=== PATIENT | male | born 1940 | race Caucasian/White ===

== ENCOUNTER 2016-09-29 18:02 | Inpatient (IN) | payer MEDICAID, MEDICARE ==
[~2016-09-29] VITALS: Ht 172.7 cm; Wt 154.5 kg
[2016-09-29] MEDS: 0.9% Sodium Chloride 1,000 ML IV SCH ×3 (00:22→21:32)
[~2016-09-29 18:02] MED LIST: ACET-171 PO; FINA5TAB9 PO; FURO40TA4 PO; LISI-571 PO; NYST1POW25 TOPICAL; OMEP20CA11 PO; POTA-62 PO; PRAV40TA PO; RISP1TAB90 PO; TAMS0.4C29 PO; Thiamine PO; WARF5TAB7 PO
[2016-09-29 18:06] VITALS: BP 130/53; PULSE 74; RESP 13; O2SAT 90
--- NOTE | 2016-09-29 18:08 | ED.REPORT ---
HPI-General Illness Date of Service Sep 29, 2016 ED Provider: Laura RocheO. A 76 year old male with a history of CHF and atrial fibrillation on Warfarin presents to the ED via EMS after being found down in his trailer just prior to arrival. He was found by EMS conscious on the ground between a bed and a dresser. He does not know how long he was down but his last known normal was five days ago when he was visited by his brother. En route he was awake and able to answer questions, with shallow breathing and a pulse ox in the 80's. He has wounds on his chest, left arm, and right leg. During the interview he was speaking normally, but shaking and answering questions incorrectly. Nursing Notes Stated Complaint: FOUND DOWN Chief Complaint: General Complaint Nursing Notes Reviewed: Yes Allergies: Coded Allergies: No Known Allergies (Verified Allergy, Unknown, 11/23/15) Scheduled ([Thiamine]) 100 MG TABLET 100 MG PO DAILY Finasteride (Finasteride) 5 Mg Tablet 5 MG PO DAILY Furosemide (Furosemide) 40 Mg Tablet 40 MG PO DAILY Lisinopril (Lisinopril) 5 Mg Tablet 5 MG PO DAILY Nystatin (Nystatin) 1 Applic/Gm Powder 1 APPLIC TOPICAL BID Omeprazole (Omeprazole) 20 Mg Capsule.dr 20 MG PO DAILY Potassium Chloride ER (Potassium Chloride ER) 20 Meq Tablet.er 40 MEQ PO QAM TAKE WITH FOOD Pravastatin (Pravastatin) 40 Mg Tablet 40 MG PO HS Risperidone (Risperdal) 1 Mg Tablet 1 MG PO BID Tamsulosin ER (Tamsulosin ER) 0.4 Mg Cap.er.24h 0.4 MG PO HS Warfarin Sodium (Warfarin Sodium) 5 Mg Tablet 5 MG PO Roca,,,,Sa Warfarin Sodium (Warfarin Sodium) 5 Mg Tablet 7.5 MG PO Wed and Fri Scheduled PRN Acetaminophen (Acetaminophen) 500 Mg Tablet 1,000 MG PO Q6H PRN PRN For Pain General Time Seen by MD: 18:08 Chief Complaint Other (Found Down) Hx Obtained From: EMS Unable to Obtain Hx: Patient condition, Mental status Arrived By: Ambulance Sudden in Onset?: Yes Onset Occurred: Onset unknown Symptom Duration: Duration unknown Associated with: Denies: Fever Pertinent Negative: Relieved by nothing Recent Healthcare: No recent doctor visit Similar Sx Previous: No Past Medical History Patient History: Patient reports no known family medical history. Past Medical History Multiple pneumonias Reports: Congestive heart failure Reports: Atrial fibrillation, Morbid Obesity Past Surgical History Reports: Cholecystectomy Smoking History Never Smoker Social History Resides at [facility] Alcohol Use: Denies alcohol use Drug Use: Denies drug use Other Social History: Lives in [facility] Review of Systems Unable to Obtain ROS Patient condition, Mental status Physical Exam Vital Signs Vital Signs Date Time Temp Pulse Resp B/P Pulse Ox O2 Delivery O2 Flow Rate FiO2 09/29/16 20:30 77 20 117/51 Non-Rebreather 15 09/29/16 18:06 36.4 74 13 130/53 90 Non-Rebreather 15 Initial VS: Reviewed Abdomen / GI: Soft, Non-tender Psychiatric: Mood/affect normal, Behavior normal General/Constitutional: Awake, Alert Distress / Hydration: Positive: Dehydration moderate Speaking normally but answering questions incorrectly Head / Eyes: Normocephalic Conjunctiva / Sclera: Positive: Discharge R... (Purulent) Trauma - General: Positive: Ecchymosis (Around right eye) Right conjunctiva hyperemia Left eye normal ENT: Airway patent Mouth: Positive: Mucous membranes dry Tongue dry and lips cracked Respiratory / Chest: Breath sounds = bilat, No respiratory distress Diminished Breath Sounds: Positive: Decreased bilateral Cardiovascular: Regular rhythm, Heart sounds NL Heart Rate / Rhythm: Positive: Tachycardia Lower Extremity / Pelvis / MS: Vascular intact Trauma / Burn / Environmental: Positive: Ecchymosis (Anterior right leg) Right calf 20% bigger than left calf Skin: Warm, Dry Areas of excoriation and erythema on anterior abdominal wall, left arm, and right leg consistent with forte or pressure ulcers Areas on right leg brightly erythemic and consistent with infection Neurologic: Speech NL Mental Status: Positive: Disoriented to person, Disoriented to place, Disoriented to time Focal Weakness: Positive: Lower extremity bilat, Upper extremity bilat Movement Abnormality: Positive: Tremor Interpretation & Diagnostics Right Venous Duplex: IMPRESSION: Limited examination secondary to patient shaking. No evidence of deep venous thrombosis identified. Dictated by: Oma Arevalo M.D. on 09/29/2016 at 21:52 Lab Results Interpretation Result Diagram: 09/29/16 1900 09/29/16 1900 Test 09/29/16 19:00 White Blood Count 29.0th/mm3 (3.8-10.1) Red Blood Count 6.03mil/mm3 (4.40-5.80) Hemoglobin 14.3g/dL (13.8-17.2) Hematocrit 46.9% (41.0-50.0) Mean Corpuscular Volume 77.8fL (81-100) Mean Corpuscular Hemoglobin 23.7pg (27.0-35.0) Mean Corpuscular Hemoglobin Concent 30.5% (32.0-37.0) Red Cell Distribution Width 19.8% (12.3-15.4) Platelet Count 305bil/L (150-400) Neutrophils (%) (Auto) 88.3% (40-74) Lymphocytes (%) (Auto) 3.0% (14-46) Monocytes (%) (Auto) 8.2% (4-12) Eosinophils (%) (Auto) 0% (0-5) Basophils (%) (Auto) 0.1% (0-3) Prothrombin Time 13.8sec (8.1-12.5) Prothromb Time International Ratio 1.28ratio Sodium Level 148mEq/L (134-144) Potassium Level 4.7mEq/L (3.5-5.2) Chloride Level 110mEq/L (97-108) Carbon Dioxide Level 20mmol/L (18-29) Blood Urea Nitrogen 48mg/dL (8-27) Creatinine 2.57mg/dL (0.76-1.27) Estimat Glomerular Filtration Rate 26mL/min (>59) Glucose Level 111mg/dL (60-99) Lactic Acid Level 3.7mmol/L (0.4-2.0) Calcium Level 9.7mg/dL (8.5-10.1) Total Bilirubin 2.1mg/dL (0.0-1.2) Aspartate Amino Transf (AST/SGOT) 471U/L (0-50) Alanine Aminotransferase (ALT/SGPT) 97U/L (0-44) Alkaline Phosphatase 109U/L (25-160) Total Creatine Kinase > 93687F/L (21-232) Troponin T 0.029ug/L (0.0-0.011) Total Protein 7.6g/dL (6.4-8.4) Albumin 3.4g/dL (3.4-5.0) ECG Interpretation ECG Interpretation: Atrial fibrillation rate 78 Nonspecific T abnormalities, lateral leads Prolonged QT interval Time: 19:24 Interpreted by: ED physician X-Ray Chest Interpretation Chest Xray Interpretation: IMPRESSION: No acute cardiopulmonary processes identified. Dictated by: Oma Arevalo M.D. on 09/29/2016 at 21:19 View: Portable, 1 view Interpretation / Wet Read by: Interpret - Radiologist CT Head Interpretation IMPRESSION: No acute intracranial process is identified. Dictated by: Oma Arevalo M.D. on 09/29/2016 at 18:57 Study: Head CT no contrast Interpretation / Wet Read by: Interpret - Radiologist Re-Eval/Medical Decision Med Decision/Clinical Course 76-year-old male has spent an unknown amount of time down on the ground. He presents by EMS. He is not exactly sure how long she has been down. He is found to be septic with rhabdomyolysis and acute renal insufficiency. I expect the sepsis coming from his skin. He has multiple areas of skin excoriation as well as bright red erythema on his left knee and his right leg is also swollen and tender. He was treated with IV fluid resuscitation and broad-spectrum antibiotics. He will be admitted to the intensive care unit. His urine also shows indicators of infection. The Zosyn should cover this as well. We are velasco culturing him. Source of Hx: Old records Time of Eval: 20:19 Patient Status: Condition improved Re-Evaluation/Progress Note: Patient rechecked. Additional physical exam performed. Informed patient of lab and CT results, with plan for admit. Patient agrees with plan for care. Consultation : Referral / Consult Name: Rolando Alba MD Consulted With: Hospitalist Call Returned at: 20:36 Hospital Superintendent: Agrees with eval, Agrees with plan, Accepts admit Counseled Regarding: Diagnosis, Lab results, Need for admission Discharge & Departure Primary Impression: Sepsis Sepsis type: sepsis due to unspecified organism Qualified Code: A41.9 - Sepsis, unspecified organism Additional Impressions: Lactic acidosis Cellulitis Site of cellulitis: extremity Site of cellulitis of extremity: lower extremity Laterality: left Qualified Code: L03.116 - Cellulitis of left lower limb Renal injury Encounter type: initial encounter Laterality: unspecified laterality Qualified Code: S37.009A - Unspecified injury of unspecified kidney, initial encounter Skin sore Elevated troponin Rhabdomyolysis Rhabdomyolysis type: non-traumatic Qualified Code: M62.82 - Rhabdomyolysis UTI (urinary tract infection) Urinary tract infection type: acute cystitis Hematuria presence: without hematuria Qualified Code: N30.00 - Acute cystitis without hematuria Disposition: ADMITTED TO HOSPITAL Discharge Condition All VS Reviewed: Yes Condition: Stable Referrals: Geoff Archuleta MD (PCP) Scribe Attestation Portions of this note were transcribed by Samantha Joe. I, Dr. Swartz, personally performed the history, physical exam, and medical decision-making; I reviewed and confirmed the accuracy of the information in the transcribed note. Signed by: Jarrett Raya, 09/30/2016, 00:04 copies to: Geoff Archuleta MD, Todd P DO Sep 29, 2016 18:08 SAMANTHA JOE Sep 29, 2016 18:52
[2016-09-29] MEDS ORDERED: Piperacillin-Tazo 3.375 Gm Inj 3.375 GM in Dextrose 5% Minibag Plus 50 ML IV ONE (18:40)
--- NOTE | 2016-09-29 18:58 | DRSVH ---
PROCEDURE: CT BRAIN WITHOUT CONTRAST ([id number]) INDICATIONS: found down, warfarin use, Елена Shevlin TECHNIQUE: Noncontrast 4.5 mm thick angled axial sections acquired from the foramen magnum to the vertex, with c oronal reformats. COMPARISON: [facility], CT, CT BRAIN WO CON, 11/23/2015, 17:45. FINDINGS: Image quality: Excellent. CSF spaces: Basal cisterns are patent. No extra-axial fluid collections. The ventricles are symmet radha in size and shape. Brain: No intracranial bleeds or masses. There is cerebral volume loss for age, with resultant vent ricular and sulcal prominence. There are periventricular and deep white matter chronic small vessel ischemic changes. There is intracranial internal carotid artery atherosclerosis. Skull and face: Calvarium and visualized facial bones appear intact, without suspicious lesions. Sinuses: Visualized sinuses and mastoids are clear. IMPRESSION: No acute intracranial process is identified. Dictated by: Oma Arevalo M.D. on 09/29/2016 at 18:57 Approved by: Oma Arevalo M.D. on 09/29/2016 at 18:57
[2016-09-29 19:37] LABS: INR 1.28 ratio
[2016-09-29 19:40] LABS: BASOPHILS % (AUTO) 0.1 % (0-3); EOSINOPHILS % (AUTO) 0 % (0-5); Mean Corpuscular Volume 77.8 fL (81-100)
[2016-09-29 19:47] LABS: MONOCYTES % (AUTO) 8.2 % (4-12); Mean Corpuscular Hemoglobin 23.7 pg (27.0-35.0); NEUTROPHILS % (AUTO) 88.3 % (40-74); Platelet Count 305 bil/L (150-400)
[2016-09-29 20:03] LABS: TROPONIN T 0.029 ug/L (0.0-0.011)
[2016-09-29 20:15] LABS: Creatine Kinase > 17000 U/L (21-232)
[2016-09-29 20:30] VITALS: BP 117/51; PULSE 77; RESP 20
[2016-09-29] MEDS ORDERED: Polyethylene Glycol (PEG) 17 Gm Powder PO PRN (20:55)
[2016-09-29] MEDS ORDERED: Alum-Mag Hydrox-Simeth 30 mL Suspension PO PRN (20:55)
[2016-09-29] MEDS ORDERED: Ondansetron 2 mg/mL 2 mL Inj IVPUSH PRN (20:55)
--- NOTE | 2016-09-29 21:20 | DRSVH ---
PROCEDURE: X-RAY CHEST ONE VIEW, PORTABLE ([id number]) INDICATIONS: sepsis TECHNIQUE: One view of the chest was acquired. COMPARISON: [facility], CR, XR CHEST 1VW (PORTABLE), 11/23/2015, 16:08. FINDINGS: Surgical changes and devices: Right humeral head replacement. Lungs and pleura: No pleural effusions or pneumothorax. Lungs are clear. Mediastinum: Mediastinal contours appear unchanged. Heart size is unchanged. Bones and chest wall: No suspicious bony lesions. Overlying soft tissues appear unremarkable. IMPRESSION: No acute cardiopulmonary processes identified. Dictated by: Oma Arevalo M.D. on 09/29/2016 at 21:19 Approved by: Oma Arevalo M.D. on 09/29/2016 at 21:19
--- NOTE | 2016-09-29 21:54 | DRSVH ---
PROCEDURE: US VEINOUS LEG DUPLEX UNILATERAL, RIGHT INDICATIONS: right leg edema, septic shock TECHNIQUE: Real-time imaging, as well as color and pulse Doppler interrogation, were performed of the lower extr emity deep veins from the inguinal ligament to the popliteal fossa. COMPARISON: None. FINDINGS: The deep veins are normally compressible, and free of intraluminal thrombus. Color and pu lse Doppler demonstrate normal phasic intraluminal flow. There is dampened augmentation response to distal compression maneuver. Of note patient was shaking throughout the examination. IMPRESSION: Limited examination secondary to patient shaking. No evidence of deep venous thrombosis identified. Dictated by: Oma Arevalo M.D. on 09/29/2016 at 21:52 Approved by: Oma Arevalo M.D. on 09/29/2016 at 21:52
[2016-09-29] MEDS: Sodium Bicarb 8.4% 150 mEq/1,000 mL D5W IV SCH ×2 (22:30)
[2016-09-29 22:36] LABS: APPEARANCE,URINE CLOUDY (CLEAR,HAZY); COLOR,URINE DARK YELLOW (YELLOW); OCCULT BLOOD,URINE LARGE (NEGATIVE)
[2016-09-29 22:37] LABS: ICTOTEST,URINE POSITIVE (Negative)
[2016-09-29 22:53] VITALS: BP 146/89; PULSE 76; RESP 20; O2SAT 100
[2016-09-30] VITALS: BP 160/90; PULSE 73; RESP 17; O2SAT 97
[2016-09-30] MEDS: 0.9% Sodium Chloride 1,000 ML IV SCH ×8 (00:19→23:21)
--- NOTE | 2016-09-30 02:20 | NUR ---
Admit Patient transferred from ED to room 2009, no distress noted. Full sponge bath given and all Calmoseptine applied to red areas, admission screening done, all questions answered, a lady called and requested info about the patient, patient requested for me not to talk with her or give her any information, urinary catheter draining dark brown urine VS as noted, will continue to monitor.
[2016-09-30 03:19] LABS: Mean Corpuscular Hemoglobin 23.9 pg (27.0-35.0); Mean Corpuscular Volume 77.6 fL (81-100)
[2016-09-30 03:20] LABS: BASOPHILS % (AUTO) 0 % (0-3); EOSINOPHILS % (AUTO) 0 % (0-5); MONOCYTES % (AUTO) 14 % (4-12); NEUTROPHILS % (AUTO) 81 % (40-74); Platelet Count 291 bil/L (150-400)
[2016-09-30 03:46] VITALS: BP 173/85; PULSE 89; RESP 26; O2SAT 99
[2016-09-30] MEDS: Sodium Bicarb 8.4% 150 mEq/1,000 mL D5W IV SCH ×4 (03:46→08:37)
[2016-09-30] MEDS ORDERED: 0.9% Sodium Chloride 1,000 ML IV ONE (03:55)
--- NOTE | 2016-09-30 04:21 | PCM.HPMED ---
Subjective Date of Service Sep 29, 2016 Primary Provider: Admitting Physician: Rolando Alba MD Primary Care Physician: Geoff Archuleta MD Attending Physician: Rolando Alba MD Chief Complaint: Ground level fall History of Present Illness: Pt is a 76 year old male with a history of CHF and atrial fibrillation on Warfarin presents to the ED via EMS after being found down in his trailer just prior to arrival. He was found by EMS conscious on the ground between a bed and a dresser. He does not know how long he was down. En route he was awake and able to answer questions, with shallow breathing and a pulse ox in the 80's. He has wounds on his chest, left arm, and right leg. During the interview he was speaking normally, but shaking and answering questions incorrectly. He reports chills, diarrhea, SOB, palpitations. Denies CP, abdominal pain, new focal weakness/numbness. Review of Systems: Comprehensive review of systems conducted and was negative except for the pertinent positives listed above. Allergies Coded Allergies: No Known Allergies (Verified Allergy, Unknown, 11/23/15) Home Medications Acetaminophen 1000 mg q6h PRN Finasteride 5 mg daily Furosemide 40 mg daily Lisinopril 5 mg daily Nystatin Omeprazole 20 mg daily KCl 40 meq daily Pravastatin 40 mg hs Risperidone 1 mg BID Tamsulosin 0.4 mg qhs Warfarin PMH Congestive heart failure Atrial fibrillation Morbid Obesity Surgical History Cholecystectomy Family History Patient reports no known family medical history. Social History Hx Alcohol Use: Yes (Occasionally) Hx Substance Use: No Hx Tobacco Use: No Smoking Status: Never Smoker Exam Vital Signs Vital Sign - Last Date Time Temp Pulse Resp B/P Pulse Ox O2 Delivery O2 Flow Rate FiO2 09/29/16 18:06 36.4 74 13 130/53 90 Non-Rebreather 15 Exam General: Alert, Confused, Cooperative, No Acute Distress. Tremulous. Head: Normocephalic. External ears normal.Ecchymosis over right eye Eyes: PERRLA, EOMI. Anicteric sclerae. Right eye corneal laceration. Mouth: Mouth Normal, Mucous Membranes Moist/Fults Neck: Neck supple with full range of motion. Chest & Lungs: Clear to auscultation bilaterally with no crackles, wheezes, or rhonchi. Cardiovascular: Tachycardic, Normal S1, Normal S2, No Murmurs/Rubs/Gallops Abdomen: Non-tender, Non-distended, No masses, Normoactive bowel tones, Soft Musculoskeletal: Normal Range of Motion Skin: Areas of excoriation and erythema on anterior abdominal wall, left arm, and right leg consistent with forte or pressure ulcers. Extremities: Ecchymosis (Anterior right leg). Right calf 20% bigger than left calf. Areas on right leg brightly erythemic Neurological: Grossly Neurologically Intact, Normal Speech Lab and Diagnostics Result Diagram: 09/29/16189909/29/161899 Assessment & Plan Pt is a 76 year old male with a history of CHF and atrial fibrillation on Warfarin presents after being found down for unknown amount of time in his trailer. Sepsis, acute. Present on admission. - RR 26, WBC 41.3. Lactic acid 2.7. CXR showed no acute cardiopulmonary disease. CT head was normal. - NS @ 250 ml/hr - Urine and blood cultures - Zosyn 3.375 q6h Rhabdomyolysis, acute. Present on admission. - CK >17,000. Down for unknown time. - NS @ 250 ml/hr - Sodium bicarb @ 150 ml/hr - Monitor CK and Cr Acute kidney injury. Present on admission. - Secondary to rhabdo. Cr 2.57. - NS @ 250 ml/hr - Monitor BMP - Avoid nephrotoxic agents - Consult Nephrology in the AM Lower extremity cellulitis, acute. Present on admission. - Initially concern for DVT given swelling. US legs was limited secondary to patient shaking. No evidence of deep venous thrombosis identified. - Wound care consult - Zosyn 3.375 q6h Urinary tract infection, acute. Present on admission. - UA showed 6-10 WBC, positive nitrite, trace leuk esterase, moderate bacteria. - Urine cultures - Zosyn 3.375 q6h Atrial fibrillation, chronic - EKG showed afib with rate 78, nonspecific T abnormalities. - Continue Warfarin - Monitor on telemetry Chronic congestive heart failure. - Hold home Lasix, Lisinopril - Bowel regimen as needed - Antiemetic as needed Patient is admitted under inpatient status with expected length of stay greater than 2 midnights due to severity of presenting symptoms, risk of adverse event, and complexity of treatment plan. Resuscitation Status: DNR/DNI:Do Not Resuscitate/Intubate Attending Statement The patient was seen and examined together with Dr. Kenyon on 09/30/16 and I agree with the history, exam and plan as outlined in the note above. Connor Munoz Sep 29, 2016 21:43 Rolando Alba MD Sep 30, 2016 08:14
[2016-09-30] MEDS ORDERED: POTASSIUM CHLORIDE 40 MEQ PO SCH (04:25)
[2016-09-30 06:26] LABS: INR 1.3 ratio
[2016-09-30 08:00] VITALS: BP 155/80; PULSE 83; RESP 21; O2SAT 99
[2016-09-30] MEDS: Piperacillin-Tazo 3.375 Gm Inj 3.375 GM in Dextrose 5% Minibag Plus 50 ML IV SCH ×2 (08:09→20:09)
[2016-09-30] MEDS: risperiDONE 1 mg Tablet PO SCH ×2 (08:09→20:09)
[2016-09-30 12:00] VITALS: BP 146/78; PULSE 84; RESP 26; O2SAT 98
--- NOTE | 2016-09-30 13:03 | NUR ---
Spoke with ex-girlfriend regarding her request for therapy dog visitation. Per her report there are two dogs who are both Pit Bulls. It was explained that under the ADA we are allowed to ask only if the animal is trained to accommodate a disability and what task or service the animal is trained to do. She is not able to clearly identify whether the dogs are comfort or therapy animals, neither is she able to tell me what they do for her. She actually does not want to bring the animal in for herself but for companionship for the patient she is visiting. Conversation was abruptly ended by the girlfriend.
--- NOTE | 2016-09-30 13:12 | NUR ---
NUTRITION ASSESSMENT: ASSESS:76 YO male admitted to CCU with sepsis, UTI, NURYS, rhabdo, after being found down. He has wounds on his chest, left arm, and right leg. Renal and wound consults ordered and are pending. Speech Therapy advanced diet to dysphagia mechanical, nectar thick liquids. PO intake not yet recorded. Code status: DNR / DNI. PMHx:CHF, A-fib requiring Coumadin, DMII, SUNNY with noncompliance. DIET:Dysphagia mechanical, heart healthy consistent carb. PO intake not yet recorded. LABS: Reviewed. Na 148, Chloride 111, BUN 54, Cr 2.42, Glu 163, Lactic Acid 2.7, Ca 7.8, AST 397, ALT 108, Alb 2.4. MEDICATIONS: Reviewed. Coumadin. NUTRITION FOCUSED PHYSICAL ASSESSMENT: GI symptoms / stool: No stool reported.Gustavo: 14. Skin Integrity: Wound evaluation pending. ANTHROPOMETRICS: Current Wt: 141.2 kgBMI: 47.0 kg/m2. IBW: 70 kg (202% IBW) ESTIMATED NEEDS (CLASS III OBESITY, WOUNDS): Calories: 1750 - 2450 kcal (25 - 35 kcal / kg IBW) Protein: 140 - 175 g protein (2.0 - 2.5 g / kg IBW) NUTRITION DIAGNOSIS: 1)Altered nutrition-related labs related to rhabdo with NURYS, as evidenced by electrolyte abnormalities, elevated BUN, Cr, Lactic Acid, AST, ALT. 2)Chewing / swallowing difficulties related to decreased laryngeal excursion, as evidenced by requirement for modified diet texture, per ST order. INTERVENTION: 1) In the event PO intake not consistently > 50% trays, will add supplements to trays to address wound healing. MONITOR/EVALUATE: Diet advance / tolerance, PO intake, labs, GI/nutrition status. Follow up per moderate nutrition risk guidelines.
--- NOTE | 2016-09-30 13:20 | NUR ---
Evaluation completed. Please go to "Notes" then click on "Assessments and Notes" (bottom left corner of screen). Then select appropriate discipline tab on top of screen.
[2016-09-30 14:23] LABS: BASOPHILS % (AUTO) 0 % (0-3); EOSINOPHILS % (AUTO) 0 % (0-5); MONOCYTES % (AUTO) 10.1 % (4-12); Mean Corpuscular Hemoglobin 23.5 pg (27.0-35.0); Mean Corpuscular Volume 78.4 fL (81-100); NEUTROPHILS % (AUTO) 83.3 % (40-74); Platelet Count 226 bil/L (150-400)
[2016-09-30 14:48] LABS: Phosphorus 3.7 mg/dL (2.5-4.9)
[2016-09-30 16:00] VITALS: BP 153/70; PULSE 80; RESP 25; O2SAT 99
--- NOTE | 2016-09-30 16:41 | NUR ---
Social Work: Initial Assessment D: Per EMR review, pt is a 76 year old male admitted for sepsis, afib, cellulitis. pt is Medicare with no supplement; pt denies LTC insurance or VA benefits. PCP is Geoff Archuleta MD. NOK is Jet Mercado, Son, . Readmit score not entered at this time. POLST and AD on chart. OYSTER FLOATER met with pt's son at bedside. Sw role explained. See initial assessment. Pt resting comfortably at this time. Per son, Pt lives in a trailer in [place]. He is I at baseline and does not use any DME to his knowledge. Pt has 3 small steps to enter his trailer. Pt continues to drive and has a history with Елена Dominique for rehab. Son believes pt may have had home health for wound care but is not certain. A: Pt who was previously I at baseline P: Evolving; Pt currently in CCU, needs not yet identified. OYSTER FLOATER to continue to follow and assist with safe dcp. LUIS DANIEL Cote Addendum: 09/30/16 at 1645 by EVERTON RUST Amended: Links added.
--- NOTE | 2016-09-30 17:13 | NUR ---
[facility] Wound evaluation orders received, pt seen at bedside. Large man in a bariatric bed, disheveled in appearance and confused. Multiple areas of skin loss/damage at abdomen and legs, pt mumbles something about an electric heater. The wounds on the patients right lower leg have the look of a thermal burn and deep at that, left knee may be a contusion or pressure phenomena, abdominal wounds also look like abrasions or partial thickness forte. Right lower leg wounds/forte?- 8cm x 8cm and 3cm x 4 cm, dressed with adhesive foam and tape. Left knee- 6cm x5 cm, dressed with foam and tape. Abdomen left side wound 11cm x 8cm, dressed with mepilex sacrum. Right abdomen-3cm x 1cm, 2cm x 1cm dressed with adhesive foam squares. Will recheck on these wounds 10/01, right may need surgical debridement if proven to be full thickness forte.
--- NOTE | 2016-09-30 17:19 | NUR ---
Mentation/LOC/urine output Pt continues to be a RASS score -1 throughout shift. Able to answer questions about who and where he is and aprox date. Ex girlfriend at bedside for some of shift. She was attempting to help him eat his breakfast and he kept coughing when drinking or eating anything. Requested her to stop feeding patient and discussed importance of making sure pt does not aspirate any food or liquid and the possible complications of aspiration if pt did. She stated "but hes really thirsty, and he is fine to drink". Repeated info to her and the pt stated "I am going to do what the nurse is wanting me to do. I won't eat or drink right now." Pt's ex girlfriend then put the drink down and said "fine" and sat down. 10 minutes later, when I walked in, she was giving pt water through a straw again and pt was coughing. Reminded both pt and her about aspiration risk and removed tray/water. Notified MD who ordered speech eval. Pt's urine output was 400ml throughout shift, dark tyler with some sediment present. Pt denies any pain. q2h turns as well as continuous rotation and frequent rounding continues. Pt's son also at bedside for a few hours. Pt stated it was ok to share info with his son, was not saying yes or no about whether it was ok to share info with his ex girlfriend.
[2016-09-30 20:04] VITALS: BP 135/72; PULSE 84; RESP 20; O2SAT 99
[2016-10-01] VITALS (8 sets, daily range): BP systolic 130–175; BP diastolic 44–91; PULSE 70–91; RESP 16–24; O2SAT 97–100
[2016-10-01 03:04] LABS: BASOPHILS % (AUTO) 0.1 % (0-3); EOSINOPHILS % (AUTO) 0 % (0-5); MONOCYTES % (AUTO) 12.1 % (4-12); Mean Corpuscular Hemoglobin 24.1 pg (27.0-35.0); Mean Corpuscular Volume 78.6 fL (81-100); NEUTROPHILS % (AUTO) 80.6 % (40-74); Platelet Count 258 bil/L (150-400)
[2016-10-01 03:17] LABS: INR 1.25 ratio
--- NOTE | 2016-10-01 05:04 | NUR ---
Mentation/Sleep Pt slighty confused when awake. Yells at lab when they attempt to draw blood. Reports that he just wants to be left alone and sleep. Care clustered for limited interruption. Pt tolerating sleep well and is hemodynamically stable throughout night. Was able to switch from 2l NC to RA. Will continue to monitor pt. Care ongoing
[2016-10-01 05:40] LABS: Magnesium 2.1 mg/dL (1.6-2.6); Phosphorus 3.7 mg/dL (2.5-4.9)
[2016-10-01] MEDS: 0.9% Sodium Chloride 1,000 ML IV SCH (06:03)
[2016-10-01] MEDS: Piperacillin-Tazo 3.375 Gm Inj 3.375 GM in Dextrose 5% Minibag Plus 50 ML IV SCH ×2 (07:46→22:23)
[2016-10-01] MEDS: risperiDONE 1 mg Tablet PO SCH ×2 (07:47→22:23)
--- NOTE | 2016-10-01 08:42 | DRSVH ---
PROCEDURE: X-RAY CHEST ONE VIEW, PORTABLE ([id number]) INDICATIONS: sepsis TECHNIQUE: One view of the chest was acquired. COMPARISON: 09/29/2016, 11/23/2015 FINDINGS: Surgical changes and devices: None. Lungs and pleura: No pleural effusions or pneumothorax. Suboptimal inspiration. Patchy radiodensitie s are present over the right hilum. These could represent distended pulmonary vessels but infiltrate cannot be excluded. Mild atelectasis or scarring at both bases. Mediastinum: Mediastinal contours appear normal. Heart size is enlarged. Bones and chest wall: No suspicious bony lesions. Overlying soft tissues appear unremarkable. IMPRESSION: Possible right perihilar pneumonia. 2 view chest with improved inspiration would be helpf ul. Dictated by: Fredi Castano M.D. on 10/01/2016 at 8:41 Approved by: Fredi Castano M.D. on 10/01/2016 at 8:41
--- NOTE | 2016-10-01 08:51 | DRSVH ---
CORRECTED EXAM DATE AND TIME ON 10/05/16 PROCEDURE: US ABDOMEN INDICATIONS: NURYS UTI in male transaminitis TECHNIQUE: Real-time scanning was performed of the abdominal and retroperitoneal organs, with image documentatio n. Exam is limited by body habitus and bowel gas. COMPARISON: CT abdomen and pelvis 10/11/2015 FINDINGS: Liver length: 21.14 cm Gallbladder Wall Thickness: N./A. CHD: Not seen CBD: 7.20 mm Spleen length: 11.52 cm Right kidney length: 14.84 cm Left kidney length: 11.63 cm Aorta(Proximal): Obscured Aorta(Mid): 2.24 cm Aorta(Distal): 1.6 RCIA: Obscured LCIA: Obscured Liver: Liver is enlarged in size and hyperechoic in echotexture. Contour appears mildly lobulated. Gallbladder: Gallbladder surgically absent Biliary ducts: Intrahepatic bile ducts are non-dilated. Extrahepatic bile duct caliber is normal. Normal is 6-7 mm or less in diameter, or 10 mm or less post-cholecystectomy. Pancreas: Pancreas is obscured by bowel gas Spleen: Spleen is borderline in size and homogeneous in echotexture. Kidneys: Kidneys are normal in size and echotexture. No hydronephrosis or nephrolithiasis. Cortical thickness is 20 mm right and 16 mm left. Right renal simple cyst measuring 5.1 x 5.5 x 5.9 cm. No so lid masses. Aorta: Visualized aorta is normal in caliber at less than 3 cm. Iliacs: Proximal common iliac arteries are normal in caliber at less than 2.5 cm. IVC: Intrahepatic inferior vena cava is patent. Miscellaneous: No free abdominal fluid. IMPRESSION: 1. Hepatomegaly and steatosis, possible cirrhosis. Borderline splenomegaly. Correlate with liver func tion tests. 2. Status post cholecystectomy. 3. Portions of anatomy are obscured by bowel gas. Dictated by: Fredi Castano M.D. on 10/01/2016 at 8:49 Approved by: Fredi Castano M.D. on 10/01/2016 at 8:49
--- NOTE | 2016-10-01 15:59 | PCM.PNMED ---
Subjective Date of Service Oct 01, 2016 Subjective Afebrile, no new complaints, urine culture growing Escherichia coli pansensitive , WBC trending down, became improving, sodium 147, IV fluids changed to 1/2 NS . He states he remembers feeling dizzy before he fell Exam Vital Signs Vital Sign - Last Date Time Temp Pulse Resp B/P Pulse Ox O2 Delivery O2 Flow Rate FiO2 10/01/16 15:32 36.8 91 16 159/77 97 Room Air 09/30/16 12:00 2.00 Intake and Output 09/30/16 09/30/16 10/01/16 Cumulative From/Thru 15:00 23:00 07:00 09/29/16 18:06 - 10/01/16 06:01 Intake Total 4077 ml 3111 ml 79583 ml Output Total 400 ml 700 ml 1450 ml Balance 3677 ml 2411 ml 9445 ml Intake Oral 120 ml 120 ml IV Total 3957 ml 3111 ml 48748 ml Output Urine Total 400 ml 700 ml 1450 ml # Bowel Movements 0 0 Exam General: Alert, Confused, Cooperative, No Acute Distress. Tremulous. Head: Normocephalic. External ears normal.Ecchymosis over right eye Eyes: PERRLA, EOMI. Anicteric sclerae. Right eye corneal laceration. Mouth: Mouth Normal, Mucous Membranes Moist/Albert Neck: Neck supple with full range of motion. Chest & Lungs: Clear to auscultation bilaterally with no crackles, wheezes, or rhonchi. Cardiovascular: Tachycardic, Normal S1, Normal S2, No Murmurs/Rubs/Gallops Abdomen: Non-tender, Non-distended, No masses, Normoactive bowel tones, Soft Musculoskeletal: Normal Range of Motion Skin: Areas of excoriation and erythema on anterior abdominal wall, left arm, and right leg consistent with forte or pressure ulcers. Extremities: Ecchymosis (Anterior right leg). Right calf 20% bigger than left calf. Areas on right leg brightly erythemic Neurological: Grossly Neurologically Intact, Normal Speech IVs and Medications Medications Reviewed: Medications were reviewed in detail Lab and Diagnostics Result Diagram: 10/01/16 0250 10/01/16 0250 Assessment & Plan Pt is a 76 year old male with a history of CHF and atrial fibrillation on Warfarin presents after being found down for unknown amount of time in his trailer. #Sepsis, acute. Present on admission. - RR 26, WBC 41.3. Lactic acid 2.7. CXR showed no acute cardiopulmonary disease. CT head was normal. -Source: Cellulitis and UTI - 1/2NS @ 100 ml/hr, switched from normal saline due to hypernatremia - Urine culture growing Escherichia coli pansensitive and blood cultures no growth 2 - Zosyn 3.375 q6h #Rhabdomyolysis, acute. Present on admission. - CK >17,000. Improved 5000 today, Down for unknown time. -1/2NS @ 100 ml/hr - Status post Sodium bicarb @ 150 ml/hr - Monitor CK and Cr #Acute kidney injury. Present on admission. - Secondary to rhabdo. initial Cr 2.57. Improved 1.82 today - NS @ 250 ml/hr - Monitor BMP - Avoid nephrotoxic agents -Consider removing Diehl tomorrow #Lower extremity cellulitis, acute. Present on admission. - Initially concern for DVT given swelling. US legs was limited secondary to patient shaking. - Wound care consult - Zosyn 3.375 q6h -Lower extremity duplex negative for DVT #Urinary tract infection, acute. Present on admission. - UA showed 6-10 WBC, positive nitrite, trace leuk esterase, moderate bacteria. - Urine cultures - Zosyn 3.375 q6h #Hypernatremia -1/2NS @ 100 ml/hr, switched from normal saline #Atrial fibrillation, chronic - EKG showed afib with rate 78, nonspecific T abnormalities. - Continue Warfarin - Monitor on telemetry #Chronic congestive heart failure. - Hold home Lasix, Lisinopril - Bowel regimen as needed - Antiemetic as needed Disposition: Discharge 2-3 days VTE Mechanical Devices: Intermittant Pneumatic CD Resuscitation Status: DNR/DNI:Do Not Resuscitate/Intubate Cecil Leblanc MD Oct 01, 2016 15:59
--- NOTE | 2016-10-01 16:53 | NUR ---
Wound Care Pt seen at bedside for wound care, leg wounds continue to weep serous fluid right > left. Cleaned wounds with saline and gauze, redressed leg wounds with mepilex foam and tape. Wounds/forte? at legs are stable, recommend daily dressing changes by nursing. Pt somnolent throughout dressing changes.
--- NOTE | 2016-10-01 17:20 | NUR ---
Mentation/TELE Patient continues to be oriented to self and place most of the time, but sometimes wakes up and isn't sure where he is. He is able to follow commands and respond appropriately. His RASS score is -1. Continuous rotation and turning continues. Pt had run of vtach this afternoon. Pt remained asymptomatic, denies any chest pain, SOB or dizziness. TELE afib with PVCs mostly in the 70s/80s.
[2016-10-02 03:45] LABS: BASOPHILS % (AUTO) 0.1 % (0-3); EOSINOPHILS % (AUTO) 0.1 % (0-5); MONOCYTES % (AUTO) 16.2 % (4-12); Mean Corpuscular Hemoglobin 23.6 pg (27.0-35.0); Mean Corpuscular Volume 80.9 fL (81-100); NEUTROPHILS % (AUTO) 74.2 % (40-74); Platelet Count 193 bil/L (150-400)
[2016-10-02 03:53] VITALS: BP 158/63; PULSE 76; RESP 20; O2SAT 96
[2016-10-02 04:00] LABS: INR 1.24 ratio
--- NOTE | 2016-10-02 04:54 | NUR ---
Mentation Pt awake at HS, alert to self, location with cueing, and disoriented to year though able to accurately state month and date. Pt slightly disoriented to situation, making accurate reference to recent fall at home and ongoing skin wounds, but also asking staff to "go to the store to get some soda", and expressing confusion after present situation explained to pt. Pt able to rest intermittently throughout shift, speech is mumbled, tangential, and incoherent when awake. VSS, RA, tele afib 70s. All dressings C/D/I, pannus slightly reddened to assessment. Pt denied turning, but compliant with SUPERVISOR WEBBING and BLE elevation. Denies pain at baseline but winces with any movement. Able to participate in bed mobility.
[2016-10-02 05:10] VITALS: PULSE 70
[2016-10-02 09:00] VITALS: PULSE 80
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
[2016-10-02] MEDS: risperiDONE 1 mg Tablet PO SCH ×2 (12:16→21:17)
[2016-10-02] MEDS ORDERED: 0.9% Sodium Chloride 1,000 ML IV SCH (14:25)
--- NOTE | 2016-10-02 14:35 | PCM.PNMED ---
Subjective Date of Service Oct 02, 2016 Subjective pt is doing okay, denied any pain, more alert that 2days ago Exam Vital Signs Vital Sign - Last Date Time Temp Pulse Resp B/P Pulse Ox O2 Delivery O2 Flow Rate FiO2 10/02/16 09:00 80 10/02/16 03:53 36.6 20 158/63 96 Room Air 09/30/16 12:00 2.00 Intake and Output 10/01/16 10/01/16 10/02/16 Cumulative From/Thru 15:00 23:00 07:00 09/29/16 18:06 - 10/02/16 04:45 Intake Total 1579 ml 870 ml 51249 ml Output Total 700 ml 950 ml 3100 ml Balance 879 ml -80 ml 11233 ml Intake Oral 100 ml 870 ml 1090 ml IV Total 1479 ml 19621 ml Output Urine Total 700 ml 950 ml 3100 ml # Bowel Movements 0 Exam Obese male, laying down on the bed NAD, comfortably laying down on the bed no JVD, MMM, no LAD RRR, nl s1, s2 no mrg CTAB, no w,c S,distended,NT,normoactive BS+, upper abd-dressed sterilely EXT: anterio shins bilateraly sterilely dressed, RLE-less erythematous/tender/ warm compared to prior day no edema, pulses 2/2 IVs and Medications Medications Reviewed: Medications were reviewed in detail Lab and Diagnostics Result Diagram: 10/02/16 0320 10/01/16 2230 Assessment & Plan Pt is a 76 year old male with a history of CHF and atrial fibrillation on Warfarin presents after being found down for unknown amount of time in his trailer. #Sepsis, acute. Present on admission. - RR 26, WBC 41.3. Lactic acid 2.7. CXR showed no acute cardiopulmonary disease. CT head was normal. -Source: Cellulitis and UTI - Urine culture growing Escherichia coli pansensitive and blood cultures no growth 2 - Zosyn 3.375 q12h, renally dosed #Rhabdomyolysis, acute. Present on admission.CK >17,000. Improved 5000 yesterday, Down for unknown time.Status post Sodium bicarb @ 150 ml/hr - Monitor CK and Cr #Acute kidney injury. Present on admission. Secondary to rhabdo. initial Cr 2.57. Improved 1.82 then 2.04 today -cw IVF, Monitor BMP, Avoid nephrotoxic agents -d/c Diehl today #Lower extremity cellulitis, acute. Present on admission. improving with abx - Initially concern for DVT given swelling. US legs was limited secondary to patient shaking. - Wound care consult - Zosyn 3.375 q12h, will switch to oral likely Augmentin next day or so if pt remains stable #Urinary tract infection, acute. Present on admission. - UA showed 6-10 WBC, positive nitrite, trace leuk esterase, moderate bacteria. - Urine cultures - Zosyn 3.375 q12h #Hypernatremia, likely hypovolemic, still seemed dehydrated on exam, stable at 147-148. no CYANIDE POT HARDENER s/s -will increase 1/2 ns 100 to 150cc/hr today, target <8meq decrease of Na level daily #Atrial fibrillation, chronic, INR not in target, rate controlled - Continue Warfarin per pharmacy - Monitor on telemetry #Chronic congestive heart failure, hold home Lasix, Lisinopril, last TTE showed EF55-60%, LVH, mod biatrial enlargement, no valvular dz, reduced RV function/dilation likely represent HFpEF, possible pHTN from untreated SUNNY. -monitor volume status closely given HFpEF, afib, will stop IVF if pt can hydrate orally better. #HTN, [id number], slightly above target, hold diuretics/ACEI given NURYS, start amlodipine 5mg today Disposition: Discharge 2-3 days, needs PT dvt ppx: systemic AC DNR/DNI diet: cardiac healthy VTE Mechanical Devices: Intermittant Pneumatic CD Resuscitation Status: DNR/DNI:Do Not Resuscitate/Intubate Time spent 35min Brayan Enriquez MD Oct 02, 2016 14:35
--- NOTE | 2016-10-02 15:01 | PCM.PHAPRO ---
Progress Date of Service: Oct 02, 2016 Ground level fall Warfarin Management per Pharmacy: Indication: Stroke prophylaxis as patient has atrial fibrillation ([id number]- Vasc = 4) Home Dose: 7.5 mg Tue/Tue, 5 mg all other days Labs: Hgb/Hct: 11.0/37.7 INR: 1.24 Date -Sep 30-Oct 01-Oct 02-Sep INR 1.28 1.3 1.25 Warf Dose 7.5 7.5 Drug Interactions: Zosyn IV Recommendation: Warfarin 10 mg PO x 1 tonight Thank You, Marline Rehman, Pharm D. Marline Rehman Oct 02, 2016 15:01
--- NOTE | 2016-10-02 16:04 | NUR ---
ERA Verbal consent with pt and pt LUIS DANIEL Smith
[2016-10-02 16:27] VITALS: BP 183/61; PULSE 83; RESP 24; O2SAT 92
[2016-10-02] MEDS: Piperacillin-Tazo 3.375 Gm Inj 3.375 GM in Dextrose 5% Minibag Plus 50 ML IV SCH (20:30)
[2016-10-02 21:05] VITALS: BP 156/63; PULSE 83; RESP 21; O2SAT 99
[2016-10-02 22:47] VITALS: BP 163/54; PULSE 86; RESP 24; O2SAT 97
[2016-10-03] VITALS (8 sets, daily range): BP systolic 139–188; BP diastolic 52–67; PULSE 77–92; RESP 19–26; O2SAT 93–98
[2016-10-03 03:24] LABS: BASOPHILS % (AUTO) 0.1 % (0-3); EOSINOPHILS % (AUTO) 0.1 % (0-5); MONOCYTES % (AUTO) 13.7 % (4-12); Mean Corpuscular Volume 82.3 fL (81-100); NEUTROPHILS % (AUTO) 76.7 % (40-74); Platelet Count 207 bil/L (150-400)
[2016-10-03 03:38] LABS: INR 1.63 ratio
[2016-10-03 03:50] LABS: Phosphorus 2.4 mg/dL (2.5-4.9)
--- NOTE | 2016-10-03 05:54 | NUR ---
Mentation Pt significantly confused and disoriented, only able to accurately identify self; confused to location, time, and situation. Unable to rest throughout shift, frequently requesting "Just get me up, and I'll get outta here. They should be calling soon." Pt frequently reoriented to situation without change in mentation. Pt frequently turning in bed, MODEL MAKER in place, legs elevated. Multiple incontinent BMs with bed changes and repositioning. Diehl catheter discontinued at HS, pt spontaneously voiding after. VSS. Tele afib 80s.
--- NOTE | 2016-10-03 07:49 | PCM.PHAPRO ---
Progress Warfarin Management per Pharmacy: Indication: Stroke prophylaxis as patient has atrial fibrillation ([id number]- Vasc = 4) Home Dose: 7.5 mg Tue/Tue, 5 mg all other days Inr Goal: 2-3 Coag Trends: 09/30 Inr 1.3 Warfarin: 7.5mg 10/01 Inr 1.25 Warfarin 7.5mg 10/02 Inr 1.24 Warfarin 10mg 10/03 Inr 1.63 Plan: Inr is progressing. Will give a reduced (but home dose) of warfarin 5mg this evening and follow Shanna Cassidy [facility] Oct 03, 2016 07:49
[2016-10-03] MEDS: risperiDONE 1 mg Tablet PO SCH ×2 (11:09→20:23)
[2016-10-03] MEDS: Dextrose 5% 1,000 ML IV SCH ×3 (11:10→20:11)
[2016-10-03] MEDS: Piperacillin-Tazo 3.375 Gm Inj 3.375 GM in Dextrose 5% Minibag Plus 50 ML IV SCH ×2 (11:11→20:03)
--- NOTE | 2016-10-03 14:21 | NUR ---
Social Work Continued Discharge Planning D: EMR Reviewed. Pt is on day 4 of hospitalization for Sepsis, AFIB, Cellulitis. Pt is not medically stable for discharge. Pt moved to [facility] status. Pt's mentation is still poor, significantly confused and disoriented. Pt receiving IVABX for sepsis. Pt being followed for Wound Care. PT =SNF for PT/OT. SW unable to meet with Pt due to mentation. SW will follow and choice Pt when mentation has improved. Pt has history at [facility], may currently be open with [facility] for Wound Care. Pt has no DPOA on file. Two brothers listed as contact. SW following for continued discharge planning A: Pt previously independent P: PT=SNF. SW to choice Pt and make referrals once Pt mentation improves. SW continues to follow for d/c planning. LUIS DANIEL Membreno
--- NOTE | 2016-10-03 14:43 | PCM.PNMED ---
Subjective Date of Service Oct 03, 2016 Subjective Patient was reported very delirious AM, pt was only oriented to himself, denied any pain As sodium went up, started free water Risperidone continued Exam Vital Signs Vital Sign - Last Date Time Temp Pulse Resp B/P Pulse Ox O2 Delivery O2 Flow Rate FiO2 10/03/16 12:01 36.5 80 21 188/63 98 Nasal Cannula 1.00 Intake and Output 10/02/16 10/02/16 10/03/16 Cumulative From/Thru 15:00 23:00 07:00 09/29/16 18:06 - 10/03/16 05:35 Intake Total 1054 ml 600 ml 1398 ml 69955 ml Output Total 950 ml 500 ml 4550 ml Balance 1054 ml -350 ml 898 ml 29445 ml Intake Oral 600 ml 0 ml 1690 ml IV Total 1054 ml 1398 ml 57379 ml Output Urine Total 950 ml 500 ml 4550 ml # Bowel Movements 1 2 3 Exam Obese male, laying down on the bed NAD, comfortably laying down on the bed no JVD, MMM, no LAD RRR, nl s1, s2 no mrg CTAB, no w,c S,distended,NT,normoactive BS+, upper abd-dressed sterilely EXT: Rt anterior shins/Lt anterior popliteral sterilely dressed, RLE-less erythematous/tender/warm compared to prior day, 2+pitting edema on RLE, pulses 2/2 IVs and Medications Medications Reviewed: Medications were reviewed in detail Lab and Diagnostics Result Diagram: 10/03/16 0300 10/03/16 0300 Assessment & Plan Pt is a 76 year old male with a history of CHF and atrial fibrillation on Warfarin presents after being found down for unknown amount of time in his trailer. #Acute encephalopathy, likely POA, this could contribute to initial presentation , patient did have similar disorientation from last hospitalization , thought to be related to toxic metabolic with CO2 retention due to SUNNY, baseline cognitive impairment, likely due to past history of alcohol use. Due to occasionally disordered thinking, risperidone was initiated and was at a stable dose with improvement mental status for several days prior to discharge. -Current presentation seemed also recurrent episode from last hospitalization plus possibly related to acute hypernatremia -will check PCO2, although doesn't have no chronic compensation based on bicarb level -will get TSH, vitB12, RPR -aggressive reorientation, restraints as needed, avoid benzo, reassess #Sepsis, acute. Present on admission, RR 26, WBC 41.3. Lactic acid 2.7. CXR showed no acute cardiopulmonary disease. CT head was normal. Source: Cellulitis and UTI - Urine culture growing Escherichia coli pansensitive and blood cultures no growth 2 - Zosyn 3.375 q12h, renally dosed, will switch to oral likely Augmentin next day or so if pt remains stable #Rhabdomyolysis, acute. Present on admission.CK >17,000. Improved 5000 yesterday, Down for unknown time.Status post Sodium bicarb @ 150 ml/hr - Monitor CK and Cr #Acute kidney injury. Present on admission. Secondary to rhabdo. initial Cr 2.57. improving today 1.11 -cw IVF, Monitor BMP, Avoid nephrotoxic agents -d/c Diehl #Lower extremity cellulitis, acute. Present on admission. improving with abx - Initially concern for DVT given swelling. US legs was limited secondary to patient shaking. - Wound care consult, #Urinary tract infection, acute. Present on admission. - UA showed 6-10 WBC, positive nitrite, trace leuk esterase, moderate bacteria. - Urine cultures - Zosyn 3.375 q12h #Hypernatremia, likely hypovolemic, still seemed dehydrated on exam, stable at 147-148. no CLINICAL LAB CLERK s/s -increased 1/2 ns 100 to 150cc/hr yesterday, switch to free water 100cc/hr today , target <8meq decrease of Na level daily -cmp bid for now #Atrial fibrillation, chronic, INR not in target, rate controlled - Continue Warfarin per pharmacy - Monitor on telemetry #Chronic congestive heart failure, hold home Lasix, Lisinopril, last TTE showed EF55-60%, LVH, mod biatrial enlargement, no valvular dz, reduced RV function/dilation likely represent HFpEF, possible pHTN from untreated SUNNY. -monitor volume status closely given HFpEF, afib, will stop IVF if pt can hydrate orally better. #HTN, [id number], slightly above target, hold diuretics/ACEI given NURYS, increased amlodipine 5mg to 10mg today Disposition: Discharge within1-2days, needs PT, SNF seemed appropriate dvt ppx: systemic AC DNR/DNI diet: cardiac healthy VTE Mechanical Devices: Intermittant Pneumatic CD Resuscitation Status: DNR/DNI:Do Not Resuscitate/Intubate Time spent 35min Brayan Enriquez MD Oct 03, 2016 14:33
--- NOTE | 2016-10-03 19:07 | NUR ---
Mentation/BM Patient alert to self only, thinks he is at home and is unable to provide year. As shift progressed, patient became increasingly confused and sentences became more nonsensical. At approx 1700, patient started having visual hallucinations, although he remained mostly pleasant. Patient had 5 BMs throughout shift, very dark -- sent guaiac as well as c.diff to lab. Tried to get up with PT today, 2PA (total) and had difficulty sitting at edge of bed.
[2016-10-04] VITALS (9 sets, daily range): BP systolic 99–155; BP diastolic 48–68; PULSE 61–77; RESP 15–24; O2SAT 94–99
[2016-10-04 00:19] LABS: Mean Corpuscular Volume 83.2 fL (81-100)
[2016-10-04 00:20] LABS: BASOPHILS % (AUTO) 0 % (0-3); EOSINOPHILS % (AUTO) 1 % (0-5); MONOCYTES % (AUTO) 11 % (4-12); NEUTROPHILS % (AUTO) 79 % (40-74); Platelet Count 191 bil/L (150-400)
[2016-10-04 03:06] LABS: BASOPHILS % (AUTO) 0.1 % (0-3); EOSINOPHILS % (AUTO) 0.6 % (0-5); MONOCYTES % (AUTO) 12.3 % (4-12); Mean Corpuscular Volume 83.3 fL (81-100); NEUTROPHILS % (AUTO) 76.2 % (40-74); Platelet Count 181 bil/L (150-400)
[2016-10-04 03:22] LABS: INR 2.5 ratio
[2016-10-04] MEDS: Piperacillin-Tazo 3.375 Gm Inj 3.375 GM in Dextrose 5% Minibag Plus 50 ML IV SCH (05:16)
--- NOTE | 2016-10-04 06:43 | NUR ---
Confusion / Restraints Pt continues to be confused, only oriented to self, didnt even know what year it was. Pt hallucinating some, stated that he saw a Baby in his bed and thought that we were taking him to snf earlier tonight. Pt re-oriented but he doesnt remember. Speech is delayed, mumbled and garbled word salad. Pt is picking and pulling at Tele leads, dressings, IV site, and taking gown and O2 off. notified and new order for soft wrist restraints and were applied around 0400.
[2016-10-04] MEDS: Amoxicillin-Clav 500-125 mg Tablet PO SCH ×3 (08:35→18:12)
[2016-10-04 10:48] LABS: Magnesium 1.9 mg/dL (1.6-2.6); Phosphorus 3.1 mg/dL (2.5-4.9)
[2016-10-04] MEDS: risperiDONE 1 mg Tablet PO SCH ×2 (11:50→21:04)
--- NOTE | 2016-10-04 12:18 | PCM.PNMED ---
Subjective Date of Service Oct 04, 2016 Subjective Patient remained confused, not coherent, only oriented to himself However speech has been fluent Denied headache, abdominal pain, pain from his wound pt intermittent hypoxic to 70 to 80% while sleeping, improved as he was awake Exam Vital Signs Vital Sign - Last Date Time Temp Pulse Resp B/P Pulse Ox O2 Delivery O2 Flow Rate FiO2 10/04/16 11:21 36.8 61 24 99/50 99 Nasal Cannula 10/04/16 08:00 2.00 Intake and Output 10/03/16 10/03/16 10/04/16 Cumulative From/Thru 15:00 23:00 07:00 09/29/16 18:06 - 10/04/16 05:42 Intake Total 2044 ml 1720 ml 09880 ml Output Total 150 ml 253 ml 4953 ml Balance 1894 ml 1467 ml 09049 ml Intake Oral 440 ml 730 ml 2860 ml IV Total 1604 ml 990 ml 51502 ml Output Urine Total 150 ml 250 ml 4950 ml Urine/Stool Mix 3 ml 3 ml # Voids 3 3 # Bowel Movements 4 3 10 Exam Obese male, laying down on the bed NAD, comfortably laying down on the bed no JVD, MMM, no LAD RRR, nl s1, s2 no mrg CTAB, no w,c S,distended,NT,normoactive BS+, upper abd-dressed sterilely EXT: Rt anterior shins/Lt anterior popliteral sterilely dressed, RLE-less erythematous/tender/warm compared to prior day, IVs and Medications Medications Reviewed: Medications were reviewed in detail Lab and Diagnostics Result Diagram: 10/04/16 0230 10/04/16 1000 Assessment & Plan Pt is a 76 year old male with a history of CHF and atrial fibrillation on Warfarin presents after being found down for unknown amount of time in his trailer. #Acute encephalopathy, likely POA, this could contribute to initial presentation , patient did have similar disorientation from last hospitalization , thought to be related to toxic metabolic with CO2 retention due to SUNNY, baseline cognitive impairment, likely due to past history of alcohol use. Due to occasionally disordered thinking, risperidone was initiated and was at a stable dose with improvement mental status for several days prior to discharge. -Current presentation seemed also recurrent episode from last hospitalization plus possibly related to acute hypernatremia -will check PCO2, although doesn't have no chronic compensation based on bicarb level -TFT WNL, await vitB12, RPR -aggressive reorientation, restraints as needed, avoid benzo, reassess #Sepsis, acute. Present on admission, RR 26, WBC 41.3. Lactic acid 2.7. CXR showed no acute cardiopulmonary disease. CT head was normal. Source: Cellulitis and UTI - Urine culture growing Escherichia coli pansensitive and blood cultures no growth 2 - Zosyn 3.375 switched to Augmentin 10/04 #Lower extremity cellulitis, acute. Present on admission. improving with abx, initially concern for DVT given swelling. US legs was limited secondary to patient shaking. -appreciate wound care consult, #Urinary tract infection, acute. Present on admission. UCX+ E.Coli, cw abx as above #Hypernatremia, likely hypovolemic, still seemed dehydrated on exam, peaked at 153, improving -increased 1/2 ns 100 to 150cc/hr yesterday, switch to free water 100cc/hr today , target <8meq decrease of Na level daily -cmp daily #HTN, [id number], slightly above target, hold diuretics/ACEI given NURYS, increased amlodipine 5mg to 10mg today #presumed GI bleeding in the setting of anticoagulation tx, developed 10/03, held Warfarin 10/04 as h/h dropped with episode of melena, h/h dropped >2hgb from baseline but stable, no further active melena now -will start PPI empirically, consider GI consult for EGD if further drops #SUNNY, intermittent nocturnal hypoxia -pt should get CPAP for sleep apnea chronic, stable, resolved #Rhabdomyolysis, acute. Present on admission.CK >17,000. Improved 5000 yesterday, Down for unknown time.Status post Sodium bicarb drip, resolved #Acute kidney injury. Present on admission. Secondary to rhabdo. initial Cr 2.57. normalized with supportive tx, IVF, Diehl d/steve 10/03 #Chronic congestive heart failure, hold home Lasix, Lisinopril, last TTE showed EF55-60%, LVH, mod biatrial enlargement, no valvular dz, reduced RV function/dilation likely represent HFpEF, possible pHTN from untreated SUNNY. -monitor volume status closely given HFpEF, afib, will stop IVF if pt can hydrate orally better. #Atrial fibrillation, chronic, INR in target, rate controlled, held Warfarin as below - Monitor on telemetry Disposition: Discharge within1-2days, needs PT, SNF seemed appropriate dvt ppx: systemic AC DNR/DNI diet: cardiac healthy VTE Mechanical Devices: Intermittant Pneumatic CD Resuscitation Status: DNR/DNI:Do Not Resuscitate/Intubate Time spent 35min Brayan Enriquez MD Oct 04, 2016 12:18
--- NOTE | 2016-10-04 14:53 | NUR ---
Social Work Note: Continued Discharge Planning Data& Assessment: Per PT pt will require SNF at time of discharge. SW met with pt at bedside to discuss discharge planning, SW role explained. SW attempted to discuss discharge planning with pt at bedside, SNF list left at bedside. Pt was confused. SW contacted pt son Anthony ([phone]) to discuss discharge planning, Pt son explained pt has been to [facility] twice before the last couple of years and agreed to referral being sent to that facility. Pt son explained he will review SNF list with his for other preferences until pt clears. SW sent referral to [facility], access provided. SW to continue to follow. Plan: Anticipated discharge to SNF when medically ready. [facility] reviewing. SW to continue to follow. LUIS DANIEL Rebolledo
[2016-10-04] MEDS: Pantoprazole 4 mg/mL 10 mL Inj IVPUSH SCH (15:52)
[2016-10-04] MEDS: Dextrose 5% 1,000 ML IV SCH (15:52)
--- NOTE | 2016-10-04 16:01 | ABG ---
DateTimeAnalyzed 15:56:00 -_ pH ____7.340 - 7.350 7.450 pCO2 ___55.9__ -mmHg 35.0 45.0 pO2 116 -mmHg 69.0 116 HCO3- ___29.4__ -mmol/L 22.0 26.0 ABE ____3.4__ -mmol/L -2.0 2.0 tHb ____9.6__ -g/dL O2Hb ___95.7__ -% COHb ____1.5__ -% MetHb ____1.0__ -% sO2 ___98.2__ -% 25.0 FIO2 ___28.0__ -% Drawn By blf - Date/Time Notified____ 16:01:00 -_ Spontaneous_RR ___16.0__ -b/min Liter_Flow ____2.0__ -L/min Oxygen Device 1 __CANNULA - Notified By blf - Notified Whom CRISELDA LACLAIRE RN -__ B 759 -mmHg tO2 ___13.1__ -Vol% Link test _Positive -
--- NOTE | 2016-10-04 19:23 | NUR ---
Nuero/diet/Sat Patient a/o x self and person, denies pain, nausea or sob. Patient lying flat on back this a.m. mouth breather,sats dropped to 50-70's, returned to 90's when hob elevated. Md at bedside and updated on resp status. Patient sleeping intermittently throughout the morning, arouses easily. RTC in this afternoon, ABG done. O2 decreased from 2 L to 1 L. Patient wide awake tonight, declined all meals this shift but did drink supplement drinks x 2. Incont of urine x 2. Abd drsg c/d/i, posterior right knee drsg changed yellow drainage. Left calf drsg c/d/i. VSS, tele A fib.
--- NOTE | 2016-10-04 21:30 | NUR ---
DISCUSSED WITH PATIENT THE PHYSICIAN ORDER TO PLACE HIM ON CPAP TONIGHT. PATIENT WANTS TIME TO THINK ABOUT IT. NOT SURE HE WANTS TO WEAR IT. PATIENT INFORMED WE WOULD COME BACK IN A LITTLE WHILE TO DISCUSS IT FURTHER WITH HIM.
[2016-10-05] VITALS (7 sets, daily range): BP systolic 132–146; BP diastolic 41–64; PULSE 65–86; RESP 16–23; O2SAT 94–98
[2016-10-05] MEDS: Dextrose 5% 1,000 ML IV SCH ×3 (03:14→22:40)
[2016-10-05 04:09] LABS: BASOPHILS % (AUTO) 0.2 % (0-3); EOSINOPHILS % (AUTO) 2.4 % (0-5); MONOCYTES % (AUTO) 11.7 % (4-12); Mean Corpuscular Hemoglobin 23.7 pg (27.0-35.0); Mean Corpuscular Volume 84.3 fL (81-100); NEUTROPHILS % (AUTO) 73.2 % (40-74); Platelet Count 207 bil/L (150-400)
[2016-10-05 04:30] LABS: INR 3.36 ratio
[2016-10-05 04:34] LABS: Magnesium 1.9 mg/dL (1.6-2.6); Phosphorus 3.2 mg/dL (2.5-4.9)
[2016-10-05 05:06] LABS: Vitamin B12 554 pg/mL (211-946)
--- NOTE | 2016-10-05 06:32 | NUR ---
Respiratory Pt decreased to RA from 1L NC at beginning of shift, tolerating well at 94-96%. Pt desaturated at approx. midnight to 70s, placed on 4L NC, spontaneous recovery with rousing. SpO2 weaned to 2L NC throughout rest of shift, SpO2 98-99% with intermittent desaturations to low 80s and spontaneous recovery. VSS, tele afib 50s-70s. Pt AOx1, SPLICER OPERATOR in place, dressings intact. Able to rest throughout shift.
[2016-10-05] MEDS: Pantoprazole 4 mg/mL 10 mL Inj IVPUSH SCH (08:21)
[2016-10-05] MEDS: risperiDONE 1 mg Tablet PO SCH ×2 (11:33→20:53)
[2016-10-05] MEDS: Amoxicillin-Clav 500-125 mg Tablet PO SCH ×3 (11:33→18:43)
--- NOTE | 2016-10-05 11:52 | PCM.PNMED ---
Subjective Date of Service Oct 05, 2016 Subjective Patient declined CPAP overnight Patient was not hallucinating, more coherent and alert although this morning, still bit confused, only oriented to himself but overall improved since yesterday Finished breakfast well Exam Vital Signs Vital Sign - Last Date Time Temp Pulse Resp B/P Pulse Ox O2 Delivery O2 Flow Rate FiO2 10/05/16 10:25 83 10/05/16 08:20 Supplement Oxygen 10/05/16 08:15 37.0 16 133/59 97 1.00 Intake and Output 10/04/16 10/04/16 10/05/16 Cumulative From/Thru 15:00 23:00 07:00 09/29/16 18:06 - 10/05/16 06:10 Intake Total 1826 ml 1090 ml 67899 ml Output Total 2 ml 4955 ml Balance 1826 ml 1088 ml 92037 ml Intake Oral 697 ml 0 ml 3557 ml IV Total 1129 ml 1090 ml 99469 ml Output Urine Total 4950 ml Urine/Stool Mix 2 ml 5 ml # Voids 2 5 # Bowel Movements 1 11 Exam Obese male, laying down on the bed NAD, comfortably laying down on the bed no JVD, MMM, no LAD RRR, nl s1, s2 no mrg CTAB, no w,c S,distended,NT,normoactive BS+, upper abd-dressed sterilely EXT: Rt anterior shins/Lt anterior popliteral sterilely dressed, RLE-less erythematous/tender/warm compared to prior day, IVs and Medications Medications Reviewed: Medications were reviewed in detail Lab and Diagnostics Result Diagram: 10/05/1630910/05/16 031 Assessment & Plan Pt is a 76 year old male with a history of CHF and atrial fibrillation on Warfarin presents after being found down for unknown amount of time in his [place]. #Acute encephalopathy, likely POA, this could contribute to initial presentation , patient did have similar disorientation from last hospitalization , thought to be related to toxic metabolic with CO2 retention due to SUNNY, baseline cognitive impairment, likely due to past history of alcohol use. Due to occasionally disordered thinking, risperidone was initiated and was at a stable dose with improvement mental status for several days prior to discharge. -Current presentation seemed also recurrent episode from last hospitalization plus possibly related to acute hypernatremia -pt has baseline hypercapnia [id number], acute on chronic respiratory acidosis with not fully compensated. -no reversible etiologies of cognitive impairment -TFT,vitB12, RPR normal -aggressive reorientation, restraints as needed, avoid benzo, reasses #Sepsis, acute. Present on admission, RR 26, WBC 41.3. Lactic acid 2.7. CXR showed no acute cardiopulmonary disease. CT head was normal. Source: Cellulitis and UTI - Urine culture growing Escherichia coli pansensitive and blood cultures no growth 2 - Zosyn 3.375 switched to Augmentin 10/04 #Lower extremity cellulitis, acute. Present on admission. improving with abx, initially concern for DVT given swelling. US legs was limited secondary to patient shaking. -appreciate wound care consult, #Urinary tract infection, acute. Present on admission. UCX+ E.Coli, cw abx as above #Hypernatremia, likely hypovolemic, still seemed dehydrated on exam, peaked at 153, improving -increased 1/2 ns 100 to 150cc/hr yesterday, switch to free water 100cc/hr 10/04 , target <8meq decrease of Na level daily -cmp daily #presumed GI bleeding in the setting of anticoagulation tx, developed 10/03, held Warfarin 10/04 as h/h dropped with episode of melena, h/h dropped >2hgb from baseline but stable, no further active melena now -will start PPI empirically, consider GI consult for EGD if further drops #SUNNY, intermittent nocturnal hypoxia -pt should get CPAP for sleep apnea, -Son is trying to bring Triology prior to hospitalization if not, should continue at SNF chronic, stable, resolved #HTN, BP in target, hold diuretics/ACEI given NURYS on admission, increased amlodipine 5mg to 10mg today #Rhabdomyolysis, acute. Present on admission.CK >17,000. Improved 5000 yesterday, Down for unknown time.Status post Sodium bicarb drip, resolved #Acute kidney injury. Present on admission. Secondary to rhabdo. initial Cr 2.57. normalized with supportive tx, IVF, Diehl d/steve 10/03 #Chronic congestive heart failure, hold home Lasix, Lisinopril, last TTE showed EF55-60%, LVH, mod biatrial enlargement, no valvular dz, reduced RV function/dilation likely represent HFpEF, possible pHTN from untreated SUNNY. -monitor volume status closely given HFpEF, afib, will stop IVF if pt can hydrate orally better. #Atrial fibrillation, chronic, INR in target, rate controlled, held Warfarin as below - Monitor on telemetry Disposition: SNF tomorrow dvt ppx: systemic AC DNR/DNI diet: cardiac healthy VTE Mechanical Devices: Intermittant Pneumatic CD Resuscitation Status: DNR/DNI:Do Not Resuscitate/Intubate Time spent 35min Brayan Enriquez MD Oct 05, 2016 11:52
--- NOTE | 2016-10-05 13:37 | NUR ---
Wound Care Pt seen at bedside for wound care and dressing changes at left and right lower legs. Wounds continue to present with slough and eschar, damaged tissue was cleaned with saline moistened gauze, the wounds are unchanged in depth or surface area measurements. Recommend continued foam dressings applied on a q 48 hour basis or PRN for soiling. There are no s/s of infection at this time. Will recheck on these wounds 10/07/16. Would recommend from outpatient wound center treatment on discharge.
--- NOTE | 2016-10-05 18:28 | NUR ---
Resp/Activity/Diet/Numbness Patient a/o to self, thinks he is in [place], needs freq reorientation. Patient incont urine, no BM this shift. Calmoseptine applied to open areas in groin folds with each incont. Physical therapy in to see patient this afternoon and patient able to dangle with sba and mimanuel standing for short period with 2 person assist and walker, but c/o right foot/leg numbness. Right LE and foot with 3+ pitting edema. Pedal pulse found with doppler. Patient taking diet well with 1:1 feeding. Freq rounding. Will cont poc.
[2016-10-06] VITALS (7 sets, daily range): BP systolic 124–150; BP diastolic 38–74; PULSE 73–85; RESP 16–26; O2SAT 92–94
--- NOTE | 2016-10-06 01:26 | NUR ---
Confusion/Restraints Patient increasingly agitated overnight. Believes he is at home and that medical staff are stealing items from his house. Threatened to hit [employer] during care. Repeatedly pulled tele leads off. Made multiple attempts to slide out of bed. Patient advised that he is weak and has not been able to stand independently; patient states 'I don't care if I fall, I don't care if I ." Unable to reorient. Soft limb restraints applied at 0114 after patient again tried to get out of bed and could not be reoriented. Continue to monitor.
[2016-10-06 03:14] LABS: Mean Corpuscular Hemoglobin 23.9 pg (27.0-35.0); Mean Corpuscular Volume 82.3 fL (81-100); Platelet Count 258 bil/L (150-400)
[2016-10-06 03:49] LABS: Magnesium 1.7 mg/dL (1.6-2.6); Phosphorus 2.6 mg/dL (2.5-4.9)
[2016-10-06 04:13] LABS: BASOPHILS % (AUTO) 0 % (0-3); EOSINOPHILS % (AUTO) 2 % (0-5); MONOCYTES % (AUTO) 10 % (4-12); NEUTROPHILS % (AUTO) 77 % (40-74)
[2016-10-06] MEDS: Dextrose 5% 1,000 ML IV SCH ×2 (05:20→09:43)
[2016-10-06] MEDS: Amoxicillin-Clav 500-125 mg Tablet PO SCH ×3 (09:12→18:12)
[2016-10-06] MEDS: Pantoprazole 4 mg/mL 10 mL Inj IVPUSH SCH (09:12)
[2016-10-06] MEDS: risperiDONE 1 mg Tablet PO SCH ×2 (09:13→22:02)
[2016-10-06] MEDS ORDERED: AMLO5TAB2 PO (10:09)
[2016-10-06] MEDS ORDERED: AMOX1TAB11 PO (10:09)
--- NOTE | 2016-10-06 12:10 | PCM.PNMED ---
Subjective Date of Service Oct 06, 2016 Subjective Unfortunately patient required physical restraints given severe disorientation. Therefore discharge was delayed Patient was not on Trilogy as it was not brought from home by his son Chest seemed more alert during the day and oriented to himself and place Last night, son stated that patient recognizing well, bit confused from his baseline but much improved since he came in Denied any difficulty breathing, cough, abdominal pain, leg pain Exam Vital Signs Vital Sign - Last Date Time Temp Pulse Resp B/P Pulse Ox O2 Delivery O2 Flow Rate FiO2 10/06/16 11:12 36.7 80 22 148/67 92 Room Air 10/05/16 08:15 1.00 Intake and Output 10/05/16 10/05/16 10/06/16 Cumulative From/Thru 15:00 23:00 07:00 09/29/16 18:06 - 10/06/16 05:53 Intake Total 1773 ml 985 ml 75943 ml Output Total 1 ml 4956 ml Balance 1773 ml 984 ml 24331 ml Intake Oral 593 ml 0 ml 4150 ml IV Total 1180 ml 985 ml 47798 ml Output Urine Total 1 ml 4951 ml Urine/Stool Mix 5 ml # Voids 3 1 9 # Bowel Movements 0 0 11 Exam Obese male, laying down on the bed NAD, comfortably laying down on the bed no JVD, MMM, no LAD RRR, nl s1, s2 no mrg CTAB, no w,c S,distended,NT,normoactive BS+, upper abd-dressed sterilely EXT: Rt anterior shins/Lt anterior popliteral sterilely dressed, RLE-less erythematous/tender/warm compared to prior day, IVs and Medications Medications Reviewed: Medications were reviewed in detail Lab and Diagnostics Result Diagram: 10/06/1624910/06/16 025 Assessment & Plan Pt is a 76 year old male with a history of CHF and atrial fibrillation on Warfarin presents after being found down for unknown amount of time in his trailer. #Acute encephalopathy, likely POA, this could contribute to initial presentation , patient did have similar disorientation from last hospitalization , thought to be related to toxic metabolic with CO2 retention due to SUNNY, baseline cognitive impairment, likely due to past history of alcohol use. Due to occasionally disordered thinking, risperidone was initiated and was at a stable dose with improvement mental status for several days prior to discharge. -Current presentation seemed also recurrent episode from last hospitalization plus possibly related to acute hypernatremia -pt has baseline hypercapnia [id number], acute on chronic respiratory acidosis with not fully compensated. -no reversible etiologies of cognitive impairment -TFT,vitB12, RPR normal -aggressive reorientation, avoid benzo, reassess, please limit physical restraints as much as possible #Sepsis, acute. Present on admission, RR 26, WBC 41.3. Lactic acid 2.7. CXR showed no acute cardiopulmonary disease. CT head was normal. Source: Cellulitis and UTI - Urine culture growing Escherichia coli pansensitive and blood cultures no growth 2 - Zosyn 3.375 switched to Augmentin 10/04 finish 10days course. #Lower extremity cellulitis, acute. Present on admission. improving with abx, initially concern for DVT given swelling. US legs was limited secondary to patient shaking. -Wound Care service evaluated, continued foam dressings applied on a q 48 hour basis or PRN for soiling.There are no s/s of infection at this time. -recommended outpatient wound care follow-up. #Urinary tract infection, acute. Present on admission. UCX+ E.Coli, cw abx as above #presumed GI bleeding in the setting of anticoagulation tx, developed 10/03, held Warfarin 10/04 as h/h dropped with episode of melena, h/h dropped >2hgb from baseline but stable, no further active melena now -will start PPI empirically, consider GI consult for EGD if further drops #SUNNY, intermittent nocturnal hypoxia -pt should get CPAP for sleep apnea, -Son is trying to bring Triology prior to hospitalization if not, should continue at SNF chronic, stable, resolved #Hypernatremia, likely hypovolemic, still seemed dehydrated on exam, peaked at 153, improved to 145 with free water 100cc/hr -cmp daily, encourage free water oral intake #HTN, BP in target, hold diuretics/ACEI given NURYS on admission, increased amlodipine 5mg to 10mg today, likely to hold diuretics upon d/c #Rhabdomyolysis, acute. Present on admission.CK >17,000. Improved 5000 yesterday, Down for unknown time.Status post Sodium bicarb drip, resolved #Acute kidney injury. Present on admission. Secondary to rhabdo. initial Cr 2.57. normalized with supportive tx, IVF, Diehl d/steve 10/03 #Chronic congestive heart failure, hold home Lasix, Lisinopril, last TTE showed EF55-60%, LVH, mod biatrial enlargement, no valvular dz, reduced RV function/dilation likely represent HFpEF, possible pHTN from untreated SUNNY. -monitor volume status closely given HFpEF, afib, will stop IVF if pt can hydrate orally better. #Atrial fibrillation, chronic, INR in target, rate controlled, held Warfarin as below - Monitor on telemetry Disposition: SNF tomorrow, delayed given physical restraint dvt ppx: systemic AC DNR/DNI diet: cardiac healthy VTE Mechanical Devices: Intermittant Pneumatic CD Resuscitation Status: DNR/DNI:Do Not Resuscitate/Intubate Time spent 35 minutes Brayan Enriquez MD Oct 06, 2016 12:10
--- NOTE | 2016-10-06 15:32 | NUR ---
Social Work Note: Continued Discharge Planning Data& Assessment: [facility] is unsure if they will be able to accept pt in the next one to two days. Pt requires bariatric bed. Pt remains confused. SW contacted pt son for second preference for SNF. Pt son explained [facility] would be the second preference. Referral made and disability services coordinator Desirae Informed SW that they will be able to accept pt when medically ready. Pt is currently on restraints for safety. Pt must be off restraints for 24 hours prior to SNF admission. SW to continue to follow. Plan: Anticipated discharge to [facility] when medically ready. Pt must be off restraints for 24 hours prior to discharge. SW to continue to follow. LUIS DANIEL Rebolledo
--- NOTE | 2016-10-06 16:38 | NUR ---
Restraints His soft wrist restraints were discontinued at 0930. He has remained fairly compliant most of the day. He has become agitated at times and attempted to climb out of bed, but is physically unable to do so. He can barely stand with two person max assist, a gait belt, and a front wheeled walker. Bed alarm on. Care continues.
[2016-10-07] VITALS (17 sets, daily range): BP systolic 104–155; BP diastolic 40–81; PULSE 81–98; RESP 22–33; O2SAT 93–100
[2016-10-07] MEDS: 0.9% Sodium Chloride 1,000 ML IV SCH ×3 (00:01→16:03)
[2016-10-07] MEDS: Pantoprazole 4 mg/mL 10 mL Inj IVPUSH SCH ×3 (00:17→20:44)
[2016-10-07 05:02] LABS: Magnesium 1.5 mg/dL (1.6-2.6)
[2016-10-07 05:31] LABS: BASOPHILS % (AUTO) 0.4 % (0-3); EOSINOPHILS % (AUTO) 0.6 % (0-5); MONOCYTES % (AUTO) 9.3 % (4-12); Mean Corpuscular Hemoglobin 24.1 pg (27.0-35.0); Mean Corpuscular Volume 83.3 fL (81-100); NEUTROPHILS % (AUTO) 72.3 % (40-74); Platelet Count 261 bil/L (150-400)
[2016-10-07] MEDS ORDERED: 0.9% Sodium Chloride 250 ML ONE ×3 (06:17→16:30)
--- NOTE | 2016-10-07 07:38 | NUR ---
GI bleed / Blood Administration / Mentation Pt alert to self only, significantly restless throughout shift; increase in agitation as shift continues, fixating on "Just get me up! I have to take a shower!" or "Did you hide the guns? Get them out, we'll need them." or muttering to self in room. Pt frequently gesturing in air, reoriented to situation, but no change in mentation with diversion or reorientation. Pt frequently attempts to get out of bed, consistent redirection required. Pt had loose stools x5 throughout shift progressively darker with clots and lala blood. MD goss, STAT H/H obtained, NS 100ml/hr initiated; pt pale to assessment, significantly agitated. Pt typed and crossed, 4 units PRBC held until blood consent signed by two physicians; first unit initiated at approx. 0600. Soft wrist restraints initiated d/t pt noncompliance and frequent attempts to remove lines and dressings as well as exit bed. VSS, tele afib 70s-90s.
[2016-10-07] MEDS ORDERED: Pantoprazole 4 mg/mL 10 mL Inj IVPUSH ONE (07:40)
[2016-10-07] MEDS ORDERED: Phytonadione (Adult) 5 MG in Dextrose 5%-Pha MIX 50 ML IV ONE (07:40)
[2016-10-07] MEDS: risperiDONE 1 mg Tablet PO SCH ×2 (07:46→20:30)
[2016-10-07] MEDS: Amoxicillin-Clav 500-125 mg Tablet PO SCH ×3 (08:00→16:03)
[2016-10-07] MEDS: Pantoprazole Inj 80 MG in 0.9% Sodium Chloride 80 ML IV SCH ×3 (10:17→20:19)
--- NOTE | 2016-10-07 10:40 | CONS ---
[address] [address] CONSULTATION REPORT PATIENT: DEBBIE HO : 1940 MR#: [id number] ADMIT: 09/29/2016 JOB ID: [id number] DATE OF SERVICE: 10/07/2016 GASTROENTEROLOGY CONSULTATION: REASON FOR CONSULTATION: Melena, drop in hemoglobin and bright red blood per rectum. HISTORY OF PRESENT ILLNESS: A 76-year-old, , obese male with history of congestive heart failure, unknown ejection fraction, atrial fibrillation on Coumadin, morbid obesity and cholecystectomy in the past who presents for consultation for melena and bright red blood per rectum. The patient was admitted to the hospital on September 29, 2016, in which he was found down by EMS in which he had lost conscious and had syncope. During the hospitalization, the patient was reported to have bright red blood per rectum in which his hemoglobin dropped from 10 down to 6.5. Patient prior to admission had been complaining of melena. The patient has been taking ibuprofen two pills per day for the past couple of years. Patient's INR was 3.36 as of October 05, 2016. Patient never had an EGD and colonoscopy. Denies family history of colon cancer, inflammatory bowel disease, or celiac disease. The patient denies nausea or vomiting, hematemesis, abdominal pain, change in bowel habits, or unintentional weight loss. The patient presents for further evaluation. PAST MEDICAL HISTORY: As stated above. PAST SURGERY: As stated above. MEDICATIONS AT HOME: Acetaminophen, finasteride, Lasix, lisinopril, nystatin, omeprazole 20 mg once a day, potassium chloride, pravastatin, Risperdal, tamsulosin and Coumadin. ALLERGIES: No known drug allergies. SOCIAL HISTORY: alcohol. No IV drug use. No smoking. FAMILY HISTORY: Negative for colon cancer, inflammatory bowel disease, or celiac disease. REVIEW OF SYSTEMS: The patient denies headache, blurred vision, nausea, vomiting, chest pain, shortness of breath, abdominal pain, skin rash, or joint pain. PHYSICAL EXAMINATION: Vital signs upon presentation: Temperature is 37.0, pulse of 88, blood pressure 113/48, respiratory rate 22, saturating 92% on room air. General: Morbidly obese, in no acute distress. Head: No scars. Eyes: Anicteric. Throat: Supple. Lungs: Clear to auscultation bilaterally. Cardiovascular: Regular rhythm and rate. Abdomen: Soft, nondistended, nontender. Normoactive bowel sounds. Extremities: No cyanosis, clubbing, or edema. LABORATORIES: Show PTT 36.8, INR 3.36. White blood cells 12.7, hemoglobin 6.5, hematocrit 22, MCV 83, platelet count of 261. Sodium 148, potassium 4.9, chloride 113, bicarb 26, BUN 30, creatinine 0.8, glucose 125, calcium 8.0, phosphorus 3.0, magnesium 1.5. Total bili 0.8, AST 43, ALT 60, alk phos 93, total protein 4.1, albumin 1.8. IMAGING: Abdominal ultrasound performed on September 30, 2016, shows hepatomegaly and steatosis, possible cirrhosis, borderline splenomegaly, status post cholecystectomy. ASSESSMENT AND PLAN: A 76-year-old, male with history of congestive heart failure, unknown ejection fraction, atrial fibrillation on Coumadin, benign prostatic hypertrophy, status post cholecystectomy, morbid obesity, hepatomegaly with borderline splenomegaly with unknown cirrhosis in the past, who presents here for melena and bright red blood per rectum, with a drop in hemoglobin from 10 to 6.4. Differential diagnosis includes diverticular bleed versus arteriovenous malformation versus bleeding polyp versus peptic ulcer disease, given his history of nonsteroidal anti-inflammatory drug use. RECOMMENDATIONS: 1. N.p.o. except for medication. 2. Protonix drip. 3. EGD and colonoscopy with anesthesia to be performed tomorrow. 4. GoLYTELY prep tonight. 5. Transfuse packed red blood cells per Hospitalist team.
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
--- NOTE | 2016-10-07 11:47 | NUR ---
Called and spoke with Janice Bailey at [facility] and they have reviewed patient and she is taking it to her director for final decision. Also gave access and faxed facesheet to Justin Shepard and [facility]. Updated EDITOR IN CHIEF Addendum: 10/07/16 at 1405 by UMAIR DENNIS CM [facility] can accept patient with to follow, patient needs to be out of restraints for 24 hours. Updated EDITOR IN CHIEF
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
[2016-10-07] MEDS ORDERED: PEG/Electrolytes 4,000 mL Solution PO ONE (16:00)
--- NOTE | 2016-10-07 17:07 | NUR ---
Social Work: Continued Discharge Planning D: Pt discussed in morning rounds. Pt is not medically stable for discharge at this time. Pt to receive 4 units of blood today and scheduled for GI scope tomorrow to repair active GI bleed. Pt continues to be in restraints as of 10/06. [facility] placed mass referral to local SNF anticipating challenging placement. Pt has been accepted to: [facility] with Irene to follow [facility] with Nate to follow [facility] with [facility] to follow A: Pt who will require skilled rehab once restraints have been d/c'd for 24 hours P: Anticipate pt to discharge to skilled rehab once medically ready; MED CARE MANAGER to follow up with pt and family re: preference of accepted SNF's. LUIS DANIEL Cote
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
--- NOTE | 2016-10-07 18:05 | NUR ---
GI Bleed, Blood Transfusion He has been having multiple large bowel movement of pure bright to dark blood with clots since last night. Today he has had a total of two large bowel movements. Per night shift supervisor assessment, he had 5 BMs last night. His H/H this AM was 6.5/. He is receiving a total of 4 units of PRBCs and is on his 3rd unit currently. The first unit was started at 0626. Due to his CHF each unit is running over about a 3 hours. He has tolerated it well and vitals have remained stable and about the same throughout treatment. Received a dose of Vitamin K this morning and is receiving a Protonix drip at 10 mls/hour. Placed 1L of O2 on for support even though his O2 sats have been in the high 90s on room air. He did c/o feeling cold after the first unit finished, but quickly denied that shortly after. One of his sons stopped by to visit him this evening and was brought up to speed on his dad's care. He will have an EGD and colonoscopy tomorrow per the current plan. Bowel prep started about 1730. So far, he is tolerating it well. H/H lab redraw will happen after the 4th unit is administered. Care continues.
[2016-10-08] VITALS (16 sets, daily range): BP systolic 127–161; BP diastolic 42–88; PULSE 77–93; RESP 14–28; O2SAT 94–100
[2016-10-08 02:11] LABS: Mean Corpuscular Hemoglobin 27.3 pg (27.0-35.0); Mean Corpuscular Volume 85.8 fL (81-100); Platelet Count 307 bil/L (150-400)
[2016-10-08 02:27] LABS: BASOPHILS % (AUTO) 0 % (0-3); EOSINOPHILS % (AUTO) 0 % (0-5); MONOCYTES % (AUTO) 4 % (4-12); NEUTROPHILS % (AUTO) 77 % (40-74)
[2016-10-08 03:01] LABS: Magnesium 1.7 mg/dL (1.6-2.6); Phosphorus 3.5 mg/dL (2.5-4.9)
[2016-10-08] MEDS ORDERED: 0.9% Sodium Chloride 250 ML ONE (03:01)
[2016-10-08] MEDS: 0.9% Sodium Chloride 1,000 ML IV SCH ×2 (05:55→15:55)
[2016-10-08] MEDS: Pantoprazole Inj 80 MG in 0.9% Sodium Chloride 80 ML IV SCH ×3 (06:15→23:40)
--- NOTE | 2016-10-08 06:36 | NUR ---
GI Bleed Pt alert to self only, significantly agitated when awake, repeatedly hallucinating and mumbling incoherently as well as attempting to get out of bed. Pt pale, cold, and dyspneic to assessment, PRBC infusion three of four in process at beginning of shift. Bowel prep ongoing, pt tolerated approx. half of GoLytely prep and refused further. Pt had extremely large movements of dark red blood and clots x3 this shift, and moderate x1. MD notified, VSS, 2 additional units PRBCs ordered. PRBC unit #6 initiated at 0630, no adverse reactions. SpO2 99% on 4L oxymask, with occasional desaturations and spontaneous recovery. Per MD, okay to stop bowel prep d/t lack of stool in movements. Tele afib 80s-90s. Protonix gtt infusing.
--- NOTE | 2016-10-08 07:36 | PCM.HPANE ---
Patient Data Surgeon Admitting Provider:Rolando Alba MD Attending Provider:Rolando Alba MD Primary Care Physician:Geoff Archuleta MD Other Provider: Reason for Visit Sepsis,Afib,Cellulitis Ht/WT & BMI Height (Feet): 5 Height (Inches): 8.00 Weight (Kilograms): 153.600 Body Mass Index 47.18 Allergies Coded Allergies: No Known Allergies (Verified Allergy, Unknown, 11/23/15) Past Anesthesia History Anesthesia History: Denies:: Anesthesia Reactions Diabetes History Hx Diabetes?: No MRSA MRSA: No Medications Hypertension Medication: Yes Home Meds Incl Beta Rocky: No Active Scripts Amlodipine 5 Mg Yryxql24 Mg PO DAILY 30 Days Prov:Brayan Enriquez MD 10/06/16 Amoxicillin/Clav K 500-125 mg 1 Each Tablet1 Tab PO TIDWM 3 Days Prov:Brayan Enriquez MD 10/06/16 Nystatin 1 Applic/Gm Powder1 Applic TOPICAL BID #100 GM Prov:Antione Jacome MD 11/14/15 [Thiamine] (Vitamin B1)100 MG TABLET No Conflict Vuaqi061 Mg PO DAILY #30 TABLET Prov:Antione Jacome MD 11/14/15 Risperidone (Risperdal)1 Mg Tablet1 Mg PO BID #60 TABLET Prov:Antione Jacome MD 11/14/15 Reported Medications Warfarin Sodium 5 Mg Tablet7.5 Mg PO Wed and Tue 30 Days Ref 0 05/26/15 Omeprazole 20 Mg Capsule.dr20 Mg PO DAILY Ref 0 05/26/15 Lisinopril 5 Mg Tablet5 Mg PO DAILY #30 TABLET Ref 0 05/26/15 Acetaminophen 500 Mg Tablet1,000 Mg PO Q6H PRN For Pain 05/26/15 Potassium Chloride ER 20 Meq Tablet.er40 Meq PO QAM 30 Days Ref 0 TAKE WITH FOOD 03/07/14 Finasteride 5 Mg Tablet5 Mg PO DAILY 30 Days Ref 0 03/07/14 Furosemide 40 Mg Pngfao38 Mg PO DAILY 30 Days 03/07/14 Pravastatin 40 Mg Zvjifa79 Mg PO HS 30 Days Ref 0 03/07/14 Warfarin Sodium 5 Mg Tablet5 Mg PO Roca,Mo,Tu,Th,Sa 30 Days Ref 0 03/07/14 Tamsulosin ER 0.4 Mg Cap.er.24h0.4 Mg PO HS 30 Days Ref 0 03/07/14 History History of ENT Problems?: No HEENT History: Denies:: Cataracts Dysphagia Sinus Problem Hx of Heart Problems?: Yes Cardiovascular History: Positive for:: Chest Pain (intermittent) Congestive Heart Failure Edema Hypertension Irregular Heartbeat (A. Fib on Coumadin) Denies:: Cardiac Surgery Heart Murmur Pacemaker Thrombophlebitis Hx of Respiratory Problem?: Yes Respiratory History: Positive for:: Dyspnea Pneumonia Denies:: Asthma COPD Chest Surgery Emphysema Hemoptysis Tuberculosis Hx Neurologic Problems?: Yes Neurological History: Positive for:: Headaches Denies:: Alzheimer's Disease CVA Dementia Dizziness Parkinson's Disease Seizures Other History/Comments patient only minimally oriented to self. Hx of GI Problems?: No Gastrointestinal History: Denies:: Diverticulitis Gastroesphageal Reflux Gastrointestinal Bleeding Heartburn Hepatitis Hiatal Hernia Rectal Bleeding Hx of Problems?: No Genitourinary History: Denies:: HX of Hemodialysis Kidney Stones Urinary Tract Infection HX of Peritoneal Dialysis: No Male Hx: Denies:: Prostate Problems (Denies) Scrotal Mass Testicular Surgery Hx Musculoskeletal Problems?: Yes Musculoskeletal History: Positive for:: Back Injury Joint Replacement (R. shoulder replacement) Denies:: Musculoskeletal Trauma Hx of Psycho/Social Problems?: No Psycho Social History: Denies:: Anxiety Bipolar Disorder Hx Depression Suicide Attempt Hx Surgeries?: Yes (Right shoulder) Hx Any Other Health Problems?: Yes Other History: Positive for:: Hospitalization (CHF, PNU) Denies:: Cancer Endocrine Disease Thyroid Disease History Blood Transfusions: Denies:: Accept Blood Products? Blood Transfuse Reaction Blood Transfusions Hx Diabetes: No Hx Alcohol Use: Yes (Occasionally)Hx Substance Use: No Smoking Status: Never Smoker Have You Smoked inLast 12 mo: No Stop/Bang Treated for Sleep Apnea?: Yes Do You Have a CPAP Machine?: Yes (Doesnt like to wear it, face mask uncomfortable) Risk Assessment Category Category 1A: Patient has history of documented sleep apnea, and HAS NOT received any narcotic, sedative or anesthesia administration during this stay. Category 1B: Patient has history of documented sleep apnea, and HAS received any narcotic , sedative or anesthesia administration during this stay Category 2: Patient has SUSPECTED Obstructive Sleep Apnea, and HAS received any narcotic , sedative or anesthesia administration during this stay. Category 3: Patient has SUSPECTED Obstructive Sleep Apnea and HAS NOT received narcotic, sedative or anesthesia administration during this stay. Category 4: Outpatient in Procedural Areas with known sleep apnea or who screen positive for High Risk via the STOP/BANG questionnaire. Exam Exam Vital Signs Vital Signs Date Time Temp Pulse Resp B/P Pulse Ox O2 Delivery O2 Flow Rate FiO2 10/08/16 06:46 36.9 81 18 148/42 10/08/16 06:28 36.9 84 21 130/59 10/08/16 06:06 37.1 89 24 141/57 10/08/16 04:36 37.2 86 28 127/64 100 OxyMask 4.00 10/08/16 04:28 87 10/08/16 03:23 36.9 93 20 136/57 10/08/16 03:04 36.9 92 23 139/46 10/07/16 23:59 37.2 98 24 111/47 100 OxyMask 4.00 General Appearance: Cooperative, No Acute Distress HEENT/AIRWAY: MP 3, Other (airway difficult to assess given confusion ) Lungs: Diminished Heart: Other (irregular) Meds/Labs/Diagnostics Admission Meds Current Medications Phytonadione 5 mg/ Dextrose/Water 50.5 ml @ 101 mls/hr ONCE ONCE IV Last administered on 10/07/16at 08:40; Start 10/07/16 at 07:40; Stop 10/07/16 at 08 :09; Status DC Pantoprazole/ Sodium Chloride (Protonix Inj/ Normal Saline) 100 ml @ 10 mls/hr Q10H IV Last administered on 10/08/16at 06:15; Start 10/07/16 at 07:40 Polyethylene Glycol/ Electrolytes 4000 ml 4,000 ml ONCE ONCE PO Last administered on 10/07/16at 16:00; Start 10/07/16 at 16:00; Stop 10/07/16 at 16 :01; Status DC Sodium Chloride 250 ml @ ud STK-MED ONCE .ROUTE Last administered on at 11:13; Start 10/07/16 at 11:06; Stop 10/07/16 at 11:07; Status DC Sodium Chloride 250 ml @ ud STK-MED ONCE .ROUTE Last administered on at 17:04; Start 10/07/16 at 16:30; Stop 10/07/16 at 16:31; Status DC Sodium Chloride (Normal Saline) 250 ml @ ud STK-MED ONCE .ROUTE Last administered on 10/08/16at 03:04; Start 10/08/16 at 03:01; Stop 10/08/16 at 03 :02; Status DC Labs Test 09/29/16 19:00 09/29/16 21:50 09/30/16 02:18 09/30/16 11:13 Procalcitonin 3.23ng/mL (See Comment) Urine Color Dark yellow (YELLOW) Urine Appearance Cloudy (CLEAR,HAZY) Urine pH 5.0 (5.0-8.0) Urine Specific [place] 1.030 (1.003-1.035) Urine Protein 100mg/dL (NEG,TRACE) Urine Glucose (UA) Negativemg/dL (NEGATIVE) Urine Ketones Tracemg/dL (NEGATIVE) Urine Occult Blood Large (NEGATIVE) Urine Nitrite Positive (NEGATIVE) Urine Bilirubin Moderate (NEGATIVE) Urine Ictotest Positive (Negative) Urine Urobilinogen 1.0mg/dL (NORMAL) Urine Leukocyte Esterase Trace (NEGATIVE) Urine RBC 3-10/hpf (0-2) Urine WBC 6-10/hpf (0-5) Urine Epithelial Cells Few/hpf (NONE-MOD) Urine Crystals Amorphous urates (NONE Urine Bacteria Moderate/hpf (NONE-FEW) Urine Hyaline Casts None/lpf (NONE) Urine Granular Casts None seen (NONE SEEN) Urine Waxy Casts None seen (NONE SEEN) Urine Red Blood Cell Casts None seen (NONE SEEN) Urine White Blood Cell Casts None seen (NONE SEEN) Urine Mucus None seen (None Seen) Urine Trichomonas None seen (NONE SEEN) Urine Yeast None (NONE SEEN) Urinalysis Comment Urine Culture Reflexed Indicated Hematology Comments Rbc Lactic Acid Level 1.9mmol/L (0.4-2.0) Troponin T 0.016ug/L (0.0-0.011) Test 10/01/16 00:05 10/01/16 02:50 10/03/16 08:45 10/03/16 15:00 Hold Purple Top Tube Received (Received) Hold [place] Top Tube Received (Received) Total Creatine Kinase 5076U/L (21-232) Hold Urine Received (Received) Urine Random Creatinine 94mg/dL (22-328) Urine Random Sodium 19mEq/L Urine Random Chloride 35mEq/L Urine Random Uric Acid 26.1mg/dL (Not Estab.) Test 10/04/16 00:00 10/04/16 10:00 10/05/16 03:10 10/08/16 02:05 Vitamin B12 Level 554pg/mL (211-946) Thyroid Stimulating Hormone (TSH) 0.862uIU/mL (0.450-4.500) Free Thyroxine 0.92ng/dL (0.82-1.77) Rapid Plasma Reagin Nr (Non Reactive) Hepatitis B Surface Antigen Negative (Negative) Hepatitis B Surface Antibody Non reactive (.) Hepatitis C Antibody 0.2s/co ratio (0.0-0.9) Prothrombin Time 36.8sec (8.1-12.5) Prothromb Time International Ratio 3.36ratio White Blood Count 25.9th/mm3 (3.8-10.1) Red Blood Count 2.89mil/mm3 (4.40-5.80) Hemoglobin 7.9g/dL (13.8-17.2) Hematocrit 24.8% (41.0-50.0) Mean Corpuscular Volume 85.8fL (81-100) Mean Corpuscular Hemoglobin 27.3pg (27.0-35.0) Mean Corpuscular Hemoglobin Concent 31.9% (32.0-37.0) Red Cell Distribution Width 17.0% (12.3-15.4) Platelet Count 307bil/L (150-400) Neutrophils (%) (Auto) 77% (40-74) Lymphocytes (%) (Auto) 10% (14-46) Monocytes (%) (Auto) 4% (4-12) Eosinophils (%) (Auto) 0% (0-5) Basophils (%) (Auto) 0% (0-3) Band Neutrophils % 5% (1-5) Metamyelocytes % 4% (0-0) Nucleated Red Blood Cells 2/100 WBC (0-24) Sodium Level 151mEq/L (134-144) Potassium Level 5.2mEq/L (3.5-5.2) Chloride Level 115mEq/L (97-108) Carbon Dioxide Level 24mmol/L (18-29) Blood Urea Nitrogen 41mg/dL (8-27) Creatinine 1.06mg/dL (0.76-1.27) Estimat Glomerular Filtration Rate 72mL/min (>59) Glucose Level 150mg/dL (60-99) Calcium Level 7.8mg/dL (8.5-10.1) Phosphorus Level 3.5mg/dL (2.5-4.9) Magnesium Level 1.7mg/dL (1.6-2.6) Total Bilirubin 1.0mg/dL (0.0-1.2) Aspartate Amino Transf (AST/SGOT) 33U/L (0-50) Alanine Aminotransferase (ALT/SGPT) 47U/L (0-44) Alkaline Phosphatase 75U/L (25-160) Total Protein 4.0g/dL (6.4-8.4) Albumin 1.5g/dL (3.4-5.0) Plan Impression Patient chart reviewed, patient interviewed and anesthestic plan with risks, benefits, and alternatives discussed, and informed consent obtained. ASA Physical Status: ASA4 Plus Emergency Anesthetic Plan: MAC Bene/Risks/Altern/Consents: Yes (two physician consent given pt's lack of oreintation) HP Complete Prior to Induction: Yes Chandler Gongora MD Oct 08, 2016 07:36
[2016-10-08] MEDS: Amoxicillin-Clav 500-125 mg Tablet PO SCH ×2 (09:14→12:35)
[2016-10-08] MEDS: risperiDONE 1 mg Tablet PO SCH (09:15)
--- NOTE | 2016-10-08 10:09 | NUR ---
gave verbal consent to ERA
[2016-10-08 10:31] LABS: INR 1.11 ratio
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
--- NOTE | 2016-10-08 14:15 | NUR ---
Patient off unit Patient off unit to endoscopy for EGD/colonoscopy. Report given to MARTINA Flowers
[2016-10-08] MEDS ORDERED: Lactated Ringer's 1,000 ML IV ONE (14:44)
[2016-10-08] MEDS ORDERED: Piper-Tazo 3.375 Gm/50 mL D5W Minibag Plus - Q8H over 4 hrs IV ONE ×2 (15:39)
--- NOTE | 2016-10-08 16:29 | PCM.ANEP1 ---
Post Anesthesia Phase 1 PACU Phase 1 Assessment Date of Service: Oct 08, 2016 Vital Signs see anesthesia record Vital Signs Date Time Temp Pulse Resp B/P Pulse Ox O2 Delivery O2 Flow Rate FiO2 10/08/16 14:26 87 14 138/59 96 Room Air 10/08/16 11:40 36.9 79 139/57 100 OxyMask 2.00 10/08/16 10:24 36.9 88 18 136/88 10/08/16 09:40 Supplement Oxygen Anesthetic Administered: MAC Level of Alertness: Sleepy, easy to arouse (generally confused, at pre- procedure baseline) COVINGTON's with Equal Strength: Yes Pain: No Oxygen Delivery: OxyMask Lungs: Diminished Chandler Gongora MD Oct 08, 2016 16:29
[2016-10-08] MEDS: Piperacillin-Tazo 3.375 Gm Inj 3.375 GM in Dextrose 5% Minibag Plus 50 ML IV SCH (16:30)
--- NOTE | 2016-10-08 16:30 | PCM.ANEP2 ---
Post Anesthesia Evaluation ASA/CMS Post Anesthesia VS in Patient's Normal Range?: Yes Resp Stable; Airway Patent?: Yes CV Function & Hydration Stable: Yes Mental Status Recovered?: Yes Pain control Satisfactory?: Yes N/V Control Satisfactory?: Yes Chandler Gongora MD Oct 08, 2016 16:30
--- NOTE | 2016-10-08 16:34 | ENDO ---
[address] [address] ENDOSCOPY PROCEDURE PATIENT: DEBBIE HO : 1940 MR#: [id number] ADMIT: 09/29/2016 JOB ID: [id number] DATE: 10/08/2016 TYPE OF OPERATION: Esophagogastroduodenoscopy with APC. PREOPERATIVE DIAGNOSIS(ES): Gastrointestinal bleed. POSTOPERATIVE DIAGNOSIS(ES): Duodenal bulb ulcer with recent stigmata of bleed with bright red blood that was seen from the ulcer itself. Most likely cause of bleed status post gold probe thermal coagulation with complication of perforation. ANESTHESIA: Monitored anesthesia care. COMPLICATIONS: Perforation. BLOOD LOSS: Minimal. DESCRIPTION OF PROCEDURE: After the risks and benefits were explained to the patient by two physician, a consent form was then obtained due to the emergent procedure for gastrointestinal bleed. The patient was brought to the endoscopy center. Upper endoscope was then inserted into the mouth and intubated into the esophagus, stomach, second portion of the duodenum. The mucosa was carefully examined. After the procedure was done, the scope was withdrawn and procedure terminated. FINDINGS: Upon inspection of the esophagus, the esophagus was normal without masses, ulcers or lesions. Z-line located 40 cm from incisors. Upon entering the stomach, the stomach was also normal without masses, ulcers, lesions. Retroflexion was normal. Upon entering the duodenum, there was a large, approximately 3 cm ulcer with recent stigmata of bleed with bright red blood that was seen coming from the duodenal ulcer itself in the posterior bulb. The first and second portion were normal. Then a gold probe thermocoagulation was then deployed and then the perforation through the ulcer occurred. Procedure was immediately stopped and General surgery was then consulted and Dr. Titi Saeed came to the endoscopy suite and saw the ulcer and the perforation. It was then recommended that the patient should have a NG tube, broad-spectrum IV antibiotics and abdominal x-ray and chest film. NG-tube was placed with endoscopic confirmation. Orders were relayed to floor nurse. I got in touch with also the hospitalist and explained to him the situation and the events that occurred and the patient will be brought back to the ICU. IMPRESSIONS: Duodenal ulcer bulb 3 cm with recent stigmata of bleed with bright red blood status post gold probe with complications of perforation. RECOMMENDATIONS: 1. N.p.o. 2. NG tube has been placed endoscopically. 3. Abdominal and chest films serial should be done. 4. Serial hematocrits. 5. Recommendations per General Surgery. 6. The patient will need an ICU bed. 7. Broad-spectrum antibiotics such as Zosyn. MTDD
[2016-10-08] MEDS ORDERED: HYDROmorphone 1 mg/mL Inj IVPUSH PRN (16:35)
[2016-10-08] MEDS ORDERED: Sodium Chloride LOK Flush 10 mL Syringe IVFLUSH PRN (18:10)
[2016-10-08 18:15] LABS: Mean Corpuscular Hemoglobin 28.6 pg (27.0-35.0); Mean Corpuscular Volume 85.8 fL (81-100)
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
--- NOTE | 2016-10-08 20:56 | DRSVH ---
PROCEDURE: X-RAY KUB ([id number]) INDICATIONS: BOWEL PERFORATION TECHNIQUE: One view of the abdomen acquired. COMPARISON: None. FINDINGS: Surgical changes and devices: Cholecystectomy clips. NG tube projects over the stomach. Bowel: There is a loop of small bowel which is dilated up to 7 cm in diameter suspicious for small b owel obstruction. Small lucency noted under the left hemidiaphragm and adjacent to several loops of distended small bowel suspicious for free intraperitoneal air. Soft tissues: No suspicious abdominal calcifications. Visualized solid organ contours appear normal in size. Bones: No suspicious bony lesions. IMPRESSION: 1. Image quality and diagnostic sensitivity of study limited by patient body habitus. 2. Lucency under the left hemidiaphragm and adjacent to loops of small bowel in the right lower quad rant suspicious for pneumoperitoneum/bowel perforation. 3. Dilated loop of small bowel compatible with small bowel obstruction. Dictated by: Rosanne Parker MD, PhD on 10/08/2016 at 20:54 Approved by: Rosanne Parker MD, PhD on 10/08/2016 at 20:54
--- NOTE | 2016-10-08 20:58 | DRSVH ---
PROCEDURE: X-RAY CHEST ONE VIEW, PORTABLE ([id number]) INDICATIONS: LINE PLACEMENT TECHNIQUE: One view of the chest was acquired. COMPARISON: [facility], CR, XR CHEST 1VW (PORTABLE), 10/01/2016, 7:56. [facility], CR, XR CHEST 1VW (PORTABLE), 10/26/2015, 4:53. FINDINGS: Surgical changes and devices: Right shoulder prosthesis is noted. NG tube presents noted. Distal t o the NG tube is not visualized. Central venous catheter is in place which projects to the atriocava l junction via a right IJ approach. Lungs and pleura: No pleural effusions or pneumothorax. Patchy airspace opacity noted in the left sayra ng base suspicious for pneumonia versus aspiration. Mediastinum: Mediastinal contours appear normal. Heart size is normal. Bones and chest wall: No suspicious bony lesions. Overlying soft tissues appear unremarkable. IMPRESSION: Central venous catheter projects to the atriocaval junction. Increasing left basilar op acity suspicious for aspiration versus pneumonia Dictated by: Rosanne Parker MD, PhD on 10/08/2016 at 20:56 Approved by: Rosanne Parker MD, PhD on 10/08/2016 at 20:56
--- NOTE | 2016-10-08 20:59 | PROCED ---
[address] [address] PROCEDURE NOTE PATIENT: DEBBIE HO : 1940 MR#: [id number] ADMIT: 09/29/2016 JOB ID: [id number] DATE OF SERVICE: 10/08/2016 POSTOPERATIVE DIAGNOSIS(ES): CHF PREOPERATIVE DIAGNOSIS(ES): CHF SURGEON: Chandler Gongora MD PROCEDURE: Central line placement. INDICATION: Poor peripheral access, CHF, potentially sepsis. PROCEDURE NOTE: I was called by the Internal Medicine service to assist with placement of a central line in this patient who is known to me from prior case earlier in the day. Indication was poor peripheral access and CHF. The patient was informed of the need for the central access and did not voice concerns. The right neck was clipped of hair, from patient's santiago hair. ChloraPrep was used to clean the area, sterile full body drape was applied over the entire patient. I then located the right internal jugular vein under ultrasound, it was quite large and clearly lateral to the carotid artery on that side. A skin wheal of lidocaine was made over the intended puncture site and then the thin-walled needle was introduced under ultrasound guidance into the internal jugular vein. This was accomplished on the second attempt. A wire was then passed through the needle. The needle was removed. A flexible catheter was placed into the vein. At this point, the pressure was visually transduced and confirmed to be venous. The wire was reintroduced and the triple-lumen catheter was passed over the wire easily. It was put into 19 cm at the skin where the wire was withdrawn. All ports were able to draw back and flush easily with good return of what appeared to be venous blood. The patient was returned to a supine position and a sterile dressing was applied by the IV Therapy nurse. A chest x-ray was performed and reviewed by me. Distal tip of the catheter is at the atrial-caval junction. [facility]
--- NOTE | 2016-10-08 21:52 | ABG ---
DateTimeAnalyzed 21:44:00 -_ pH ____7.279 - 7.350 7.450 pCO2 ___56.9__ -mmHg 35.0 45.0 pO2 ___89.1__ -mmHg 69.0 116 HCO3- ___25.8__ -mmol/L 22.0 26.0 ABE ___-0.8__ -mmol/L -2.0 2.0 tHb ____9.5__ -g/dL O2Hb ___93.9__ -% COHb ____1.5__ -% MetHb ____1.2__ -% sO2 ___96.5__ -% 25.0 FIO2 ___50.0__ -% Drawn By blf - Date/Time Notified____ 21:51:00 -_ Spontaneous_RR ___26.0__ -b/min Liter_Flow ____9.0__ -L/min Oxygen Device 1 _OXY MASK - Notified By blf - Notified Whom ___DR.KUBISTY - B 765 -mmHg tO2 ___12.7__ -Vol% Link test N/A -
[2016-10-08] MEDS ORDERED: Furosemide 10 mg/mL 4 mL Inj IVPUSH ONE (22:00)
[2016-10-08] MEDS ORDERED: fentaNYL-PF 50 mCg/mL 2 mL Inj ONE (22:17)
[2016-10-09] VITALS (19 sets, daily range): BP systolic 112–177; BP diastolic 37–139; PULSE 85–114; RESP 18–34; O2SAT 92–100
[2016-10-09] MEDS: 0.9% Sodium Chloride 1,000 ML IV SCH ×2 (00:24→10:02)
[2016-10-09] MEDS: Piperacillin-Tazo 3.375 Gm Inj 3.375 GM in Dextrose 5% Minibag Plus 50 ML IV SCH ×3 (00:25→16:30)
--- NOTE | 2016-10-09 00:27 | ABG ---
DateTimeAnalyzed 00:20:45 -_ pH ____7.390 - pCO2 ___45.8__ -mmHg pO2 ___97.4__ -mmHg HCO3- ___27.7__ -mmol/L ABE ____2.5__ -mmol/L tHb ___10.0__ -g/dL O2Hb ___96.0__ -% COHb ____1.5__ -% MetHb ____0.4__ -% sO2 ___97.9__ -% FIO2 ___40.0__ -% PEEP ___10.0__ -cmH2O Set_RR 18 -b/min Vt __500.0__ -L Drawn By blf - Oxygen Device 2 AVAPS MODE - Spontaneous_RR 21 -b/min Oxygen Device 1 ____BIPAP - B 763 -mmHg K+ ____4.4__ -mmol/L tO2 ___13.6__ -Vol% Link test _Positive -
[2016-10-09] MEDS: HYDROmorphone 0.5 mg/0.5 mL iSecure Syringe IVPUSH PRN ×8 (04:39→23:27)
[2016-10-09] MEDS: Pantoprazole Inj 80 MG in 0.9% Sodium Chloride 80 ML IV SCH ×3 (04:43→22:25)
--- NOTE | 2016-10-09 06:11 | NUR ---
Respiratory/GI/Neuro Patient had Central line placed per anesthesiologist around beginning of shift. CXR and Abd xray last night Md aware of results. Patient was noted somnolent and less responsive last night. Tachypneic and labored breathing. 02sat in mid 90s on 9L Oxymask. Md made aware ABG done and 40 Lasix IV x1 given. Pt started on BIPAP on AVAPS mode. Repeat ABG with improvement noted. 02sat in 99-100% on BIpap. Patient noted be waking up more and more responsive this am. He moans and c/o pain this am. Dilaudid given with effectiveness noted. Pt gets restless at times and tendency to remove tubes/lines. Restraints are on and sitter at bedside while patient on Bipap. Diehl patent with about 550 cc urine output. NG tube patent with about 100 cc output of yellow/brown drainage. No bm noted at this time.
--- NOTE | 2016-10-09 08:21 | DRSVH ---
PROCEDURE: X-RAY CHEST ONE VIEW, PORTABLE ([id number]) INDICATIONS: 76-year-old male with increased shortness of breath. TECHNIQUE: One view of the chest was acquired. COMPARISON: [facility], CR, XR KUB, 10/08/2016, 19:47. [facility], CR, XR C HEST 1VW (PORTABLE), 10/08/2016, 19:47. [facility], CR, XR CHEST 1VW (PORTABLE), 016, 7:56. [facility], CR, XR CHEST 1VW (PORTABLE), 09/29/2016, 20:12. FINDINGS: Surgical changes and devices: Patient is status post right shoulder arthroplasty and cholecystectomy. Right internal jugular central venous catheter and nasogastric tube are again noted. Lungs and pleura: No pleural effusions or pneumothorax. Lungs are clear. Lung volumes are decreased . Mediastinum: Mediastinal contours appear normal. Cardiomegaly is unchanged. Bones and chest wall: No suspicious bony lesions. There is persistent pneumoperitoneum. IMPRESSION: 1. Large pneumoperitoneum persists, consistent with bowel perforation and/or recent surgery. 2. Decreased lung volumes, without acute cardiopulmonary disease. 3. Cardiomegaly as before. Dictated by: Torres Juarez M.D. on 10/09/2016 at 8:19 Approved by: Torres Juarez M.D. on 10/09/2016 at 8:19
[2016-10-09 08:32] LABS: Mean Corpuscular Hemoglobin 28.5 pg (27.0-35.0); Mean Corpuscular Volume 88.7 fL (81-100)
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
--- NOTE | 2016-10-09 09:11 | PCM.PNSURG ---
Subjective Date of Service: Oct 09, 2016 Date of Service: Oct 09, 2016 Visit Information: Subjective: wbc jump 44.6 this am. more distended abdomen than yesterday. s/p egd gold probe for bleeding duodenal ulcer complicated by perforation yesterday (see note for full details). Postop General: No Complaints Objective Vital Sign- Last 8 Hours Date Time Temp Pulse Resp B/P Pulse Ox O2 Delivery O2 Flow Rate FiO2 10/09/16 08:00 24 140/71 98 BiPAP 40 10/09/16 04:40 93 34 177/37 96 40 10/09/16 04:00 97 10/09/16 04:00 36.4 90 23 124/92 99 BiPAP 40 Intake and Output- Last 8 Hour 10/09/16 Cumulative From/Thru 07:00 09/29/16 18:06 - 10/09/16 05:59 Intake Total 1906 ml 20159 ml Output Total 650 ml 6333 ml Balance 1256 ml 74073 ml Intake Oral 0 ml 4750 ml IV Total 1906 ml 18837 ml Packed Cells 1250 ml Output Urine Total 550 ml 6227 ml Stool Total 1 ml Urine/Stool Mix 5 ml Gastric Drainage Total 100 ml 100 ml # Voids 18 # Bowel Movements 0 15 General: Alert Neck: Supple Lungs: Coarse Heart: Exam Unremarkable Abdomen: Firm, Appropriately tender, Distended Extremities: Distal Pulses Palpable Result Diagram: 10/09/1652910/09/16529 Assessment & Plan Impression 76-year-old, male with history of congestive heart failure, unknown ejection fraction, atrial fibrillation on Coumadin, benign prostatic hypertrophy , status post cholecystectomy, morbid obesity, hepatomegaly with borderline splenomegaly with unknown cirrhosis in the past, who presents here for melena and bright red blood per rectum, with a drop in hemoglobin from 10 to 6.4. s/p egd gold probe 10/08/16- FINDINGS: Upon inspection of the esophagus, the esophagus was normal without masses, ulcers or lesions. Z-line located 40 cm from incisors. Upon entering the stomach, the stomach was also normal without masses, ulcers, lesions. Retroflexion was normal. Upon entering the duodenum, there was a large, approximately 3 cm ulcer with recent stigmata of bleed with bright red blood that was seen coming from the duodenal ulcer itself in the posterior bulb. The first and second portion were normal. Then a gold probe thermocoagulation was then deployed and then the perforation through the ulcer occurred. Procedure was immediately stopped and General surgery was then consulted and Dr. Titi Saeed came to the endoscopy suite and saw the ulcer and the perforation. It was then recommended that the patient should have a NG tube, broad-spectrum IV antibiotics and abdominal x-ray and chest film. NG-tube was placed with endoscopic confirmation. Orders were relayed to floor nurse. I got in touch with also the hospitalist and explained to him the situation and the events that occurred and the patient will be brought back to the ICU. IMPRESSIONS: Duodenal ulcer bulb 3 cm with recent stigmata of bleed with bright red blood status post gold probe with complications of perforation. RECOMMENDATIONS: 1. N.p.o. 2. NG tube has been placed endoscopically. 3. Abdominal and chest films serial should be done. 4. Serial hematocrits. 5. Recommendations per General Surgery. 6. The patient will need an ICU bed. 7. Broad-spectrum antibiotics such as Zosyn. 10/09/16- wbc increase 44 and more distended abdomen than yesterday. Recs: 1) continue broad spectrum abx per hospitalist team 2) cont NG tube for decompression 3) Recs per Gen surgery will cont to follow Problems: Resuscitation Status: DNR/DNI:Do Not Resuscitate/Intubate Jay Pastor MD Oct 09, 2016 09:10
[2016-10-09] MEDS: Micafungin Inj 100 MG in 0.9% Sodium Chloride 100 ML IV SCH (09:39)
[2016-10-09] MEDS ORDERED: 0.9% Sodium Chloride 250 ML ONE (11:28)
[2016-10-09] MEDS ORDERED: Propofol 10,000 mCg/mL 20 mL Inj ONE (11:39)
--- NOTE | 2016-10-09 11:47 | PROG NOTE ---
[address] [address] PROGRESS NOTE PATIENT: DEBBIE HO : 1940 MR#: [id number] ADMIT: 09/29/2016 JOB ID: [id number] DATE: 10/09/2016 SUBJECTIVE: This is a 76-year-old man with a bleeding duodenal ulcer who underwent endoscopy resulting in perforation. He was evaluated by my partner, Dr. Saeed, yesterday. The decision was made to observe overnight. He had an increase in pneumoperitoneum and an increase in his white blood cell count to 44 this morning. He has increasing abdominal pain. I was asked to reevaluate his current status as it looks like surgical intervention will be necessary. OBJECTIVE: Vital signs are within normal limits, with the exception of respiratory rate of 34, and he is on a BiPAP with an FiO2 of 40. General: He is very delirious. He does not know his name or where he is right now. He only knows that he has abdominal pain. Abdomen: Distended, tympanic. Rebound tenderness is present. LABORATORY: White blood cell count is 44. Albumin is 1.7. INR is 1.1. Creatinine is 1.15, sodium 152, potassium 4.9, glucose 152. Hematocrit 29. IMAGING: A chest x-ray from last night revealed pneumoperitoneum. ASSESSMENT: A 76-year-old man with increasing pneumoperitoneum and a peritoneal abdomen after perforation of duodenal ulcer. PLAN: This case was discussed in detail with the patient's son, Anthony, his hospitalist, Dr. Blackwell, and the anesthesiologist on-call, Dr. Swan. He has very explicit DO NOT INTUBATE orders documented both on his POLST form and on a palliative care note that was written one year ago when the patient was intact, awake, and family was present. Although sometimes surgical intervention involves only brief intubation in order to perform the operation, with subsequent extubation, this patient is at very high risk of prolonged intubation postoperatively given his multiple comorbidities and critically ill status, in combination with the acute nature of his current problem. For all of these reasons, the patient's son was asked to come semi-emergently to the hospital in order to have a family discussion as to how to proceed. It is unusual to have such excellent documentation of a DO NOT INTUBATE order as noted in the palliative care note one year ago and also on the POLST form. For this reason the decision to proceed with surgery will be deferred, although if the decision is made ultimately to proceed, it would be performed in an emergent setting. ADDENDUM: Family meeting was had as noted above with the patient's son and daughter-in- law. As noted in Dr. Swan's progress note from today, the patient's wishes were to not be intubated and although some operations involve only a brief transient intubation period, surgery in this patient is very likely to result in prolonged intubation. The signed POLST form with "Do Not Intubate" specifically written on it, and palliative care note from his hospitalization from Sep 2015-Oct 2015 indicating that the patient made this decision when he was mentally capable of decision making and his family was present, were both reviewed. The decision was therefore made to not proceed with surgery. SYLVESTER
--- NOTE | 2016-10-09 11:59 | PCM.ANEPRE ---
Anesthesia Pre-Op Review Reason for Review: DNR order in patient with acute abdomne Additional Comments Asked by Ameena Owens and Rishi to see Mr Mercado for possible laparascopic duodenal ulcer patch. Multiple medical problems outlined in admission H and P. Recent EGD with discovery of a duodenal ulcer and subsequent perforation during procedure yesterday. Pt has a clear advance directive signed 10/15/15 for limited interventions and "Do not intubate". This is supported by a palliative care note by Dr Mckeon on 10/30/15 who discussed this with the patient and family: "Resuscitation Status: DNR/DNI:"Do Not Resuscitate/ Intubate (Discussed with pt when he was not confused, and with family present.) ". Patient is currently worsening and is at very high risk for surgical complications and prolonged intubation. These risk factors and the patients well documented POLST and Dr Stroud note were discussed today with the patients son Pedro and his Leonora. They agree that the patient would not want to be intubated (was intubated for a prolonged period before his advance directive), would not want prolonged intubation with little chance of survival despite surgery. We answered all their questions, and provide extensive reassurance that comfort care would be immediately available as well as limited interventions like antibiotics. Pedro and Leonora were very understanding and Dr Owens, Steve Blackwell, and I are all available to them any time over the next several days. Chart Reviewed by: Glenn Esquivel MD, MD Oct 09, 2016 11:59
--- NOTE | 2016-10-09 12:42 | PCM.PNMED ---
Subjective Date of Service Oct 09, 2016 Subjective Patient is confused. Monitoring. He does indicate increased abdominal pain. Exam Vital Signs Vital Sign - Last Date Time Temp Pulse Resp B/P Pulse Ox O2 Delivery O2 Flow Rate FiO2 10/09/16 10:10 37.0 97 18 131/55 99 BiPAP 40 10/08/16 20:00 9.00 Intake and Output 10/08/16 10/08/16 10/09/16 Cumulative From/Thru 15:00 23:00 07:00 09/29/16 18:06 - 10/09/16 05:59 Intake Total 395 ml 950 ml 1906 ml 87842 ml Output Total 650 ml 6333 ml Balance 395 ml 950 ml 1256 ml 66826 ml Intake Oral 0 ml 4750 ml IV Total 395 ml 950 ml 1906 ml 87523 ml Packed Cells 1250 ml Output Urine Total 550 ml 6227 ml Stool Total 1 ml Urine/Stool Mix 5 ml Gastric Drainage Total 100 ml 100 ml # Voids 3 18 # Bowel Movements 0 15 Exam Patient is awake but confused. Normal skull. Anicteric sclerae, symmetric pupils Neck supple Lungs are clear, normal rate. Heart is regular without murmur, gallop or rub. Miss very tender without guarding or rebound. He is morbidly obese. Extremities with 1-2+ edema. Legs are less red. IVs and Medications Medications Reviewed: Medications were reviewed in detail Lab and Diagnostics Result Diagram: 10/09/1652910/09/16529 Assessment & Plan Pt is a 76 year old male with a history of CHF and atrial fibrillation on Warfarin presents after being found down for unknown amount of time in his trailer. 1. Perforated duodenal ulcer with pneumoperitoneum and evidence of peritonitis. The patient has clinically deteriorated over the course of the night his white count is escalated to 44,000. He has evidence of gross pneumoperitoneum on x-ray. The case is discussed with Dr. Owens coroner's juror for general surgery as well as anesthesiology. Previous pelvic care notes reviewed and his discussion ensued with family. This is documented by Dr. Swan with the indication is that the patient would not want heroic measures and for these reasons surgery will not be pursued. It is anticipated that this will be a terminal event for the patient with progression to sepsis from peritonitis. 2. Duodenal ulcer, upper GI bleed. The patient has a stable hematocrit overnight. Patient does have evidence of duodenal ulcer by source. There was a perforation at the time of therapeutic endoscopy. The patient will be managed for comfort at this point 3. Acute metabolic encephalopathy, likely POA, this has not improved substantially. We will follow clinically. 4.Sepsis, acute. Present on admission, RR 26, WBC 41.3. Lactic acid 2.7. CXR showed no acute cardiopulmonary disease. CT head was normal. Source: Cellulitis and UTI - Urine culture growing Escherichia coli pansensitive and blood cultures no growth 2 -The patient is now on Zosyn since yesterday to cover for peritonitis. 5. Lower extremity cellulitis, acute. No changed antibiotic plan 6. Urinary tract infection, acute. Present on admission. UCX+ E.Coli, cw abx as above 7. SUNNY, intermittent nocturnal hypoxia -pt should get CPAP for sleep apnea, -Son is trying to bring [facility] prior to hospitalization if not, should continue at SNF 8. Hypernatremia, (free water deficit). This is evolving. We will change fluids to D5 1/2 normal saline. Follow serial sodium. chronic, stable, resolved #Hypernatremia, likely hypovolemic, still seemed dehydrated on exam, peaked at 153, improved to 145 with free water 100cc/hr -cmp daily, encourage free water oral intake #HTN, BP in target, hold diuretics/ACEI given NURYS on admission, increased amlodipine 5mg to 10mg, hold given GIB today. #Rhabdomyolysis due to prolonged immobilization for unknown time,POA, CK >17, 000. Improved to 5000, Status post Sodium bicarb drip, resolved #Acute kidney injury. Present on admission. Secondary to rhabdo. initial Cr 2.57. normalized with supportive tx, IVF, Diehl d/steve 10/03 #Chronic congestive heart failure, hold home Lasix, Lisinopril, last TTE showed EF55-60%, LVH, mod biatrial enlargement, no valvular dz, reduced RV function/dilation likely represent HFpEF, possible pHTN from untreated SUNNY. -monitor volume status closely given HFpEF, afib, will stop IVF if pt can hydrate orally better. #Atrial fibrillation, chronic, INR in target, rate controlled, last Coumadin dose . - Monitor on telemetry At this point I anticipate transition to comfort care as needed for comfort. We will then now begun to withdraw all other general medical measures as appropriate. dvt ppx: systemic AC DNR/DNI diet: cardiac healthy Pain Evaluation: Adequate Pain Control VTE Mechanical Devices: Intermittant Pneumatic CD Resuscitation Status: DNR/DNI:Do Not Resuscitate/Intubate Time spent 45 minutes Link Blackwell MD Oct 09, 2016 12:42
[2016-10-09] MEDS ORDERED: Sodium Chloride LOK Flush 10 mL Syringe IVFLUSH PRN ×2 (13:25)
[2016-10-09] MEDS: Dextrose 5% 1,000 ML IV SCH ×2 (14:00→22:45)
[2016-10-09] MEDS ORDERED: PEG/Electrolytes 4,000 mL Solution PO ONE (16:00)
--- NOTE | 2016-10-09 19:57 | NUR ---
Pt's son & family @ bedside After conference with MDs, pt's son Anthony keeping valdez @ bedside; with his Spouse & 11yr old son @ bedside also as able. All very attentive & supportive to pt & ea other; expressing realistic outlook re pt's guarded status. Also they called their pastoral support person, said jen @ bedside. Pt somulent, minimally responsive by late afternoon; Family deciding to travel to their home tonight due to worsening weather conditions and return early in a.m. Request to be called at any time if pt's condition changes.
[2016-10-09] MEDS: Sodium Chloride LOK Flush 10 mL Syringe IVFLUSH PRN (23:27)
[2016-10-10] VITALS (8 sets, daily range): BP systolic 115–144; BP diastolic 59–84; PULSE 78–95; RESP 18–23; O2SAT 88–100
[2016-10-10] MEDS: Piperacillin-Tazo 3.375 Gm Inj 3.375 GM in Dextrose 5% Minibag Plus 50 ML IV SCH ×3 (01:28→16:30)
[2016-10-10] MEDS: Dextrose 5% 1,000 ML IV SCH ×2 (03:13→18:45)
[2016-10-10] MEDS: HYDROmorphone 0.5 mg/0.5 mL iSecure Syringe IVPUSH PRN ×3 (03:45→09:26)
[2016-10-10] MEDS: Pantoprazole Inj 80 MG in 0.9% Sodium Chloride 80 ML IV SCH ×2 (03:45→18:25)
[2016-10-10] MEDS: Sodium Chloride LOK Flush 10 mL Syringe IVFLUSH PRN (06:29)
--- NOTE | 2016-10-10 07:11 | NUR ---
Pain Generalized pain per FELDT and Dilaudid given with some effectiveness noted. Pt gets restless at times. Sitter at bedside. Turn q2h. Telemetry Afib in 80s-90s. NG tube patent with 80 cc of brown drainage.
--- NOTE | 2016-10-10 08:37 | NUR ---
Physical Therapy to discharge services due to transition to comfort care. Please reconsult PT if new needs arise.
--- NOTE | 2016-10-10 08:37 | PROG NOTE ---
[address] [address] PROGRESS NOTE PATIENT: DEBBIE HO : 1940 MR#: [id number] ADMIT: 09/29/2016 JOB ID: [id number] DATE: SUBJECTIVE: This is a 76-year-old man with a perforated duodenal ulcer. The decision was made to not proceed to surgery given his previous advanced directives. Overnight, he has remained relatively stable with normal vital signs off of pressors. He is not intubated and is on a 40% FiO2 BiPAP. NG output is 200 mL. It is not bloody. Hematocrit is stable. OBJECTIVE: Vital signs are normal, with heart rate in the 80s. General: Delirious, lying in bed with BiPAP in place. Abdomen: Distended, somewhat less tender compared to yesterday. LABORATORIES: White blood cell count is 44.6, hematocrit 28.9, platelets 406. Comprehensive metabolic panel reveals a creatinine rise from 1.15-1.44. ASSESSMENT: A 76-year-old man with a perforated duodenal ulcer. Nonoperative management. RECOMMENDATIONS: Continue current supportive care.
[2016-10-10] MEDS: Micafungin Inj 100 MG in 0.9% Sodium Chloride 100 ML IV SCH (09:28)
[2016-10-10] MEDS ORDERED: 0.9% Sodium Chloride 250 ML ONE (09:34)
--- NOTE | 2016-10-10 10:24 | PCM.PNSURG ---
Subjective Date of Service: Oct 10, 2016 Date of Service: Oct 10, 2016 Visit Information: Subjective: no overt signs bleed overnight. abdomen distended. Postop General: No Complaints Objective Vital Sign- Last 8 Hours Date Time Temp Pulse Resp B/P Pulse Ox O2 Delivery O2 Flow Rate FiO2 10/10/16 07:28 83 19 131/59 100 40 10/10/16 04:24 95 10/10/16 04:21 78 19 144/70 99 40 10/10/16 04:00 37.0 84 18 144/70 99 40 10/10/16 04:00 CPAP/BIPAP Intake and Output- Last 8 Hour 10/10/16 Cumulative From/Thru 07:00 09/29/16 18:06 - 10/10/16 06:37 Intake Total 226 ml 65572 ml Output Total 380 ml 7013 ml Balance -154 ml 44914 ml Intake Oral 0 ml 4750 ml IV Total 226 ml 41924 ml Packed Cells 1250 ml Output Urine Total 300 ml 6727 ml Stool Total 1 ml Urine/Stool Mix 5 ml Gastric Drainage Total 80 ml 280 ml # Voids 18 # Bowel Movements 0 15 General: Alert Neck: Supple Lungs: Clear to Auscultation Heart: Exam Unremarkable Abdomen: Benign, Firm, Appropriately tender, Distended Extremities: Distal Pulses Palpable Result Diagram: 10/09/1652910/09/16529 Assessment & Plan Impression 76-year-old, male with history of congestive heart failure, unknown ejection fraction, atrial fibrillation on Coumadin, benign prostatic hypertrophy , status post cholecystectomy, morbid obesity, hepatomegaly with borderline splenomegaly with unknown cirrhosis in the past, who presents here for melena and bright red blood per rectum, with a drop in hemoglobin from 10 to 6.4. s/p egd gold probe 10/08/16- FINDINGS: Upon inspection of the esophagus, the esophagus was normal without masses, ulcers or lesions. Z-line located 40 cm from incisors. Upon entering the stomach, the stomach was also normal without masses, ulcers, lesions. Retroflexion was normal. Upon entering the duodenum, there was a large, approximately 3 cm ulcer with recent stigmata of bleed with bright red blood that was seen coming from the duodenal ulcer itself in the posterior bulb. The first and second portion were normal. Then a gold probe thermocoagulation was then deployed and then the perforation through the ulcer occurred. Procedure was immediately stopped and General surgery was then consulted and Dr. Titi Saeed came to the endoscopy suite and saw the ulcer and the perforation. It was then recommended that the patient should have a NG tube, broad-spectrum IV antibiotics and abdominal x-ray and chest film. NG-tube was placed with endoscopic confirmation. Orders were relayed to floor nurse. I got in touch with also the hospitalist and explained to him the situation and the events that occurred and the patient will be brought back to the ICU. IMPRESSIONS: Duodenal ulcer bulb 3 cm with recent stigmata of bleed with bright red blood status post gold probe with complications of perforation. RECOMMENDATIONS: 1. N.p.o. 2. NG tube has been placed endoscopically. 3. Abdominal and chest films serial should be done. 4. Serial hematocrits. 5. Recommendations per General Surgery. 6. The patient will need an ICU bed. 7. Broad-spectrum antibiotics such as Zosyn. 10/09/16- wbc increase 44 and more distended abdomen than yesterday. 10/10/2015- distended abdomen. Family meeting noted from 10/09 from chart biopsy and nursing staff this am. Recs: 1) continue broad spectrum abx per hospitalist team 2) Recs per Gen surgery will cont to follow Problems: Resuscitation Status: DNR/DNI:Do Not Resuscitate/Intubate Jay Pastor MD Oct 10, 2016 10:24
[2016-10-10 10:56] LABS: Mean Corpuscular Hemoglobin 28.8 pg (27.0-35.0); Mean Corpuscular Volume 91.2 fL (81-100)
[2016-10-10] MEDS ORDERED: 0.9% Sodium Chloride 1,000 ML IV SCH (12:30)
[2016-10-10] MEDS ORDERED: Ondansetron 2 mg/mL 2 mL Inj IVPUSH PRN (13:10)
[2016-10-10] MEDS ORDERED: Atropine 1% 5 mL Ophthalmic Solution PO PRN (13:10)
[2016-10-10] MEDS ORDERED: Morphine 2 mg/mL Syringe Loading/bolus dose IVPUSH PRN (13:10)
[2016-10-10] MEDS ORDERED: LORazepam 2 mg/mL Inj SEIZURE IVPUSH PRN (13:10)
[2016-10-10] MEDS ORDERED: Haloperidol 5 mg/mL Inj IVPUSH PRN (13:10)
--- NOTE | 2016-10-10 14:00 | PCM.PNMED ---
Subjective Date of Service Oct 10, 2016 Subjective Patient is agitated. He seems agitated. He can't communicate due to confusion. Exam Vital Signs Vital Sign - Last Date Time Temp Pulse Resp B/P Pulse Ox O2 Delivery O2 Flow Rate FiO2 10/10/16 07:28 83 19 131/59 100 40 10/10/16 04:00 37.0 10/10/16 04:00 CPAP/BIPAP 10/08/16 20:00 9.00 Intake and Output 10/09/16 10/09/16 10/10/16 Cumulative From/Thru 15:00 23:00 07:00 09/29/16 18:06 - 10/10/16 06:37 Intake Total 1023 ml 226 ml 95348 ml Output Total 300 ml 380 ml 7013 ml Balance 723 ml -154 ml 25221 ml Intake Oral 0 ml 0 ml 4750 ml IV Total 1023 ml 226 ml 76993 ml Packed Cells 1250 ml Output Urine Total 200 ml 300 ml 6727 ml Stool Total 1 ml Urine/Stool Mix 5 ml Gastric Drainage Total 100 ml 80 ml 280 ml # Voids 18 # Bowel Movements 0 0 15 Exam Patient is awake but confused. Normal skull. Anicteric sclerae, symmetric pupils Neck supple Lungs are clear, normal rate. Heart is regular without murmur, gallop or rub. Miss very tender without guarding or rebound. He is morbidly obese. Extremities with 1-2+ edema. Legs are less red. IVs and Medications Medications Reviewed: Medications were reviewed in detail Lab and Diagnostics Result Diagram: 10/10/16 1030 10/10/16 1030 Assessment & Plan Pt is a 76 year old male with a history of CHF and atrial fibrillation on Warfarin presents after being found down for unknown amount of time in his trailer. 1. Perforated duodenal ulcer with pneumoperitoneum and evidence of peritonitis. The patient has clinically deteriorated over the course of the night his white count is escalated to 44,000. He has evidence of gross pneumoperitoneum on x-ray. The case is discussed with Dr. Owens interventional pain physician for general surgery as well as anesthesiology. Previous pelvic care notes reviewed and his discussion ensued with family. This is documented by Dr. Swan with the indication is that the patient would not want heroic measures and for these reasons surgery will not be pursued. It is anticipated that this will be a terminal event for the patient with progression to sepsis from peritonitis. Met with the family and they all support and request comfort care with a morphine drip. Will dc all supportive medications as well as BiPAP. Pain Evaluation: Adequate Pain Control VTE Mechanical Devices: Intermittant Pneumatic CD Resuscitation Status: DNR/DNI:Do Not Resuscitate/Intubate Time spent 35 minutes Link Blackwell MD Oct 10, 2016 14:00
[2016-10-10] MEDS: Morphine 100 mg/100 mL NS 100 MG in IV Premix 1 EACH IV SCH ×2 (15:30→19:50)
--- NOTE | 2016-10-10 15:30 | NUR ---
Family conference w/ MD/transition to full Comfort Care Son, family @ bedside throughout day; attentive & supportive w/ pt & w/ ea other. Morphine gtt started for severe abd pain symptoms r/t inoperable perforation; multiple boluses with rate increases; currently @ 6mg/hr. IVP Lorazepam also admin. Orders implemented to stop Bipap, ABX, Protonix gtt, TELE, O2 as per agreement and request of pt's family. Note Polst on chart, also provider documentation. Comfort Cart @ bedside; family expressing appreciation for care given to pt & support to family.
--- NOTE | 2016-10-10 20:10 | NUR ---
Transfer note Pt on comfort care, morphine gtt @ 3 mg/hr via Rt IJ, appear comfortable, Rattling noise at back of throat, given robinul 0.2mg IV for increased secretions. Pt report given to Maryam Anna RN. Pt transferred to 1019. Franki Cruz at bedside updated with POC.
--- NOTE | 2016-10-10 22:56 | NUR ---
Transfer/ Patient arrived to room 1019 via [facility] bed with family at bedside around 1999. Patient unresponsive and noted to have labored breathing. MS gtt running. At 2019, family noted patient to no longer be breathing. Patient pronounced by two RNs at that time. Family still at bedside. MD notified. Family stated wishes to have patient transported to [facility] in . Belongings of patients from [facility] sent home with son. Donation line called and patient is not a candidate for organ donation. IV line and flowers d/c'd. Postmortem care provided. Body bagged. Security notified about transfer to [facility] and [facility] will pick patient up from there.
--- NOTE | 2016-10-11 07:33 | PCM.DC.MED ---
Discharge Summary Date of Service Oct 11, 2016 Dates of Hospitalization Date of Hospital Admission Sep 29, 2016 at 20:55 Date of Discharge: Oct 10, 2016 Providers: Admitting Physician: Rolando Alba MD Primary Care Physician: Geoff Archuleta MD Attending Physician: Rolando Alba MD Diagnosis at Time of Discharge Diagnosis at Time of Discharge 1. Expiration 2. Sepsis 3. Perforated duodenal ulcer 4. Acute blood loss anemia secondary to acute upper GI bleed 5. Peritonitis 6. Acute on chronic hypoxic respiratory failure 7. Rhabdomyolysis 8. Leg cellulitis as source of initial sepsis 9. Urinary tract infection, pansensitive Escherichia coli. 10. Chronic diastolic heart failure 11. Chronic atrial fibrillation 12. Acute encephalopathy Consultations Dr. Psator, gastroenterology Dr. Saeed, general surgery Procedures XRay, CTs & MRIs Numerous chest x-rays. All essentially unremarkable with regards to chest. The later x-rays indicated pneumoperitoneum after endoscopy. Abdominal ultrasound revealing possible liver cirrhosis. Leg ultrasound duplex negative for deep venous thrombosis Brain CT and day of admit unremarkable Invasive Procedures Upper endoscopy on October 08. This indicated a recently bleeding duodenal ulcer. Perforation did occur at the time of heat therapy. Brief History Pt is a 76 year old male with a history of CHF and atrial fibrillation on Warfarin presents to the ED via EMS after being found down in his trailer just prior to arrival. He was found by EMS conscious on the ground between a bed and a dresser. He does not know how long he was down. En route he was awake and able to answer questions, with shallow breathing and a pulse ox in the 80's. He has wounds on his chest, left arm, and right leg. During the interview he was speaking normally, but shaking and answering questions incorrectly. He reports chills, diarrhea, SOB, palpitations. Denies CP, abdominal pain, new focal weakness/numbness. Hospital Course Pt is a 76 year old male with a history of CHF and atrial fibrillation on Warfarin presents after being found down for unknown amount of time in his trailer. 1. Perforated duodenal ulcer with pneumoperitoneum and evidence of peritonitis. The patient has clinically deteriorated over the course of the night his white count is escalated to 44,000. He has evidence of gross pneumoperitoneum on x-ray. The case is discussed with Dr. Owens button tufter for general surgery as well as anesthesiology. Previous pelvic care notes reviewed and his discussion ensued with family. This is documented by Dr. Swan with the indication is that the patient would not want heroic measures and for these reasons surgery will not be pursued. It is anticipated that this will be a terminal event for the patient with progression to sepsis from peritonitis. Met with the family and they all support and request comfort care with a morphine drip. Will dc all supportive medications as well as BiPAP. Exam Vital Signs (Last) Date Time Temp Pulse Resp B/P Pulse Ox O2 Delivery O2 Flow Rate FiO2 10/10/16 18:00 36.8 95 23 126/84 88 Room Air 10/10/16 08:30 40 10/08/16 20:00 9.00 Exam On the day of expiration the patient was delirious. He is unable to answer questions. He had anicteric sclera Lungs were clear but with increased rate and effort Heart was irregular without murmur Abdomen is distended and tender with some guarding and rebound. Extremities are normal for notable for 1-2+ edema. Test 09/29/16 19:00 09/29/16 21:50 09/30/16 02:18 09/30/16 11:13 Procalcitonin 3.23ng/mL (See Comment) Urine Color Dark yellow (YELLOW) Urine Appearance Cloudy (CLEAR,HAZY) Urine pH 5.0 (5.0-8.0) Urine Specific [place] 1.030 (1.003-1.035) Urine Protein 100mg/dL (NEG,TRACE) Urine Glucose (UA) Negativemg/dL (NEGATIVE) Urine Ketones Tracemg/dL (NEGATIVE) Urine Occult Blood Large (NEGATIVE) Urine Nitrite Positive (NEGATIVE) Urine Bilirubin Moderate (NEGATIVE) Urine Ictotest Positive (Negative) Urine Urobilinogen 1.0mg/dL (NORMAL) Urine Leukocyte Esterase Trace (NEGATIVE) Urine RBC 3-10/hpf (0-2) Urine WBC 6-10/hpf (0-5) Urine Epithelial Cells Few/hpf (NONE-MOD) Urine Crystals Amorphous urates (NONE Urine Bacteria Moderate/hpf (NONE-FEW) Urine Hyaline Casts None/lpf (NONE) Urine Granular Casts None seen (NONE SEEN) Urine Waxy Casts None seen (NONE SEEN) Urine Red Blood Cell Casts None seen (NONE SEEN) Urine White Blood Cell Casts None seen (NONE SEEN) Urine Mucus None seen (None Seen) Urine Trichomonas None seen (NONE SEEN) Urine Yeast None (NONE SEEN) Urinalysis Comment Urine Culture Reflexed Indicated Hematology Comments Rbc Troponin T 0.016ug/L (0.0-0.011) Test 10/01/16 00:05 10/01/16 02:50 10/03/16 08:45 10/03/16 15:00 Hold Purple Top Tube Received (Received) Hold [place] Top Tube Received (Received) Total Creatine Kinase 5076U/L (21-232) Hold Urine Received (Received) Urine Random Creatinine 94mg/dL (22-328) Urine Random Sodium 19mEq/L Urine Random Chloride 35mEq/L Urine Random Uric Acid 26.1mg/dL (Not Estab.) Test 10/04/16 00:00 10/04/16 10:00 10/08/16 02:05 10/08/16 10:05 Vitamin B12 Level 554pg/mL (211-946) Thyroid Stimulating Hormone (TSH) 0.862uIU/mL (0.450-4.500) Free Thyroxine 0.92ng/dL (0.82-1.77) Rapid Plasma Reagin Nr (Non Reactive) Hepatitis B Surface Antigen Negative (Negative) Hepatitis B Surface Antibody Non reactive (.) Hepatitis C Antibody 0.2s/co ratio (0.0-0.9) Neutrophils (%) (Auto) 77% (40-74) Lymphocytes (%) (Auto) 10% (14-46) Monocytes (%) (Auto) 4% (4-12) Eosinophils (%) (Auto) 0% (0-5) Basophils (%) (Auto) 0% (0-3) Band Neutrophils % 5% (1-5) Metamyelocytes % 4% (0-0) Nucleated Red Blood Cells 2/100 WBC (0-24) Phosphorus Level 3.5mg/dL (2.5-4.9) Magnesium Level 1.7mg/dL (1.6-2.6) Prothrombin Time 11.9sec (8.1-12.5) Prothromb Time International Ratio 1.11ratio Test 10/10/16 10:30 White Blood Count 36.3th/mm3 (3.8-10.1) Red Blood Count 2.85mil/mm3 (4.40-5.80) Hemoglobin 8.2g/dL (13.8-17.2) Hematocrit 26.0% (41.0-50.0) Mean Corpuscular Volume 91.2fL (81-100) Mean Corpuscular Hemoglobin 28.8pg (27.0-35.0) Mean Corpuscular Hemoglobin Concent 31.5% (32.0-37.0) Red Cell Distribution Width 19.5% (12.3-15.4) Platelet Count 387bil/L (150-400) Sodium Level 147mEq/L (134-144) Potassium Level 4.1mEq/L (3.5-5.2) Chloride Level 112mEq/L (97-108) Carbon Dioxide Level 27mmol/L (18-29) Blood Urea Nitrogen 58mg/dL (8-27) Creatinine 2.01mg/dL (0.76-1.27) Estimat Glomerular Filtration Rate 35mL/min (>59) Glucose Level 170mg/dL (60-99) Lactic Acid Level 1.2mmol/L (0.4-2.0) Calcium Level 7.7mg/dL (8.5-10.1) Total Bilirubin 1.0mg/dL (0.0-1.2) Aspartate Amino Transf (AST/SGOT) 15U/L (0-50) Alanine Aminotransferase (ALT/SGPT) 27U/L (0-44) Alkaline Phosphatase 65U/L (25-160) Total Protein 4.4g/dL (6.4-8.4) Albumin 1.6g/dL (3.4-5.0) Microbiology Results Urine culture indicated Escherichia coli, which was pansensitive Discharge Medications Discharge Medications ([Thiamine]) 100 MG TABLET 100 MG PO DAILY Prescribed by: BETH LOMELI MD Amlodipine (Amlodipine) 5 Mg Tablet 10 MG PO DAILY Prescribed by: VALE MARQUEZ MD Amoxicillin/Clav K 500-125 mg (Amoxicillin/Clav K 500-125 mg) 1 Each Tablet 1 TAB PO TIDWM Prescribed by: VALE MARQUEZ MD Finasteride (Finasteride) 5 Mg Tablet 5 MG PO DAILY (Reported) Furosemide (Furosemide) 40 Mg Tablet 40 MG PO DAILY (Reported) Lisinopril (Lisinopril) 5 Mg Tablet 5 MG PO DAILY (Reported) Nystatin (Nystatin) 1 Applic/Gm Powder 1 APPLIC TOPICAL BID Prescribed by: BETH LOMELI MD Omeprazole (Omeprazole) 20 Mg Capsule.dr 20 MG PO DAILY (Reported) Potassium Chloride ER (Potassium Chloride ER) 20 Meq Tablet.er 40 MEQ PO QAM ( Reported) TAKE WITH FOOD Pravastatin (Pravastatin) 40 Mg Tablet 40 MG PO HS (Reported) Risperidone (Risperdal) 1 Mg Tablet 1 MG PO BID Prescribed by: BETH LOMELI MD Tamsulosin ER (Tamsulosin ER) 0.4 Mg Cap.er.24h 0.4 MG PO HS (Reported) Warfarin Sodium (Warfarin Sodium) 5 Mg Tablet 5 MG PO [place],,, (Reported) Warfarin Sodium (Warfarin Sodium) 5 Mg Tablet 7.5 MG PO Wed and Tue (Reported) As needed Acetaminophen (Acetaminophen) 500 Mg Tablet 1,000 MG PO Q6H PRN PRN For Pain ( Reported) Followup Plan Disposition: Time spent 60 minutes Link Blackwell MD Oct 11, 2016 07:33
== END 2016-10-10 20:20 | disposition expired | DRG 871 ==
LOC: SED 18:02 → CCU 20:55 → PCC 10-01 07:30 → CCU 10-08 16:15 → PCC 10-10 18:32 → OSC 10-10 19:42
PROVIDERS: ADMIT Internal Medicine; ATTEND Internal Medicine
PROC: 4A033R1 Measurement of Arterial Saturation, Peripheral, Percutaneous Approach (ICD-10-PCS; 2016-10-04)
PROC: 30233N1 Transfusion of Nonautologous Red Blood Cells into Peripheral Vein, Percutaneous Approach (ICD-10-PCS; 2016-10-07)
PROC: 0DJ08ZZ Inspection of Upper Intestinal Tract, Via Natural or Artificial Opening Endoscopic (ICD-10-PCS; 2016-10-08)
PROC: 02HV33Z Insertion of Infusion Device into Superior Vena Cava, Percutaneous Approach (ICD-10-PCS; 2016-10-08)
PROC: 5A09458 Assistance with Respiratory Ventilation, 24-96 Consecutive Hours, Intermittent Positive Airway Pressure (ICD-10-PCS; 2016-10-08)
PROC: 30233N1 Transfusion of Nonautologous Red Blood Cells into Peripheral Vein, Percutaneous Approach (ICD-10-PCS; 2016-10-08)
PROC: 0W3P8ZZ Control Bleeding in Gastrointestinal Tract, Via Natural or Artificial Opening Endoscopic (ICD-10-PCS; principal; 2016-10-08 14:30)
DX: A41.9 Sepsis, unspecified organism (principal); G93.40 Encephalopathy, unspecified; K26.4 Chronic or unspecified duodenal ulcer with hemorrhage; J96.21 Acute and chronic respiratory failure with hypoxia; K65.9 Peritonitis, unspecified; N17.8 Other acute kidney failure; L03.116 Cellulitis of left lower limb; N39.0 Urinary tract infection, site not specified; E87.4 Mixed disorder of acid-base balance; E87.0 Hyperosmolality and hypernatremia; Z68.43 Body mass index [BMI] 50.0-59.9, adult; D62 Acute posthemorrhagic anemia; I50.32 Chronic diastolic (congestive) heart failure; K91.71 Accidental puncture and laceration of a digestive system organ or structure during a digestive system procedure; R29.6 Repeated falls; T79.6XXA Traumatic ischemia of muscle, initial encounter; E66.01 Morbid (severe) obesity due to excess calories; I48.2 Chronic atrial fibrillation; Z79.01 Long term (current) use of anticoagulants; Z66 Do not resuscitate; B96.20 Unspecified Escherichia coli [E. coli] as the cause of diseases classified elsewhere; I10 Essential (primary) hypertension; G47.33 Obstructive sleep apnea (adult) (pediatric); Z78.1 Physical restraint status; Z51.5 Encounter for palliative care